=== PATIENT | female | born 1945 | race Caucasian/White ===

== ENCOUNTER 2020-01-11 14:06 | Outpatient (CLI) | payer MEDICARE, SELFPAY ==
--- NOTE | ~2020-01-11 | MM_ITS ---
EXAMINATION: MM screening miladys RT w radha HISTORY: Screening right mammogram, history of left mastectomy TECHNIQUE: Craniocaudal and mediolateral oblique 3-D tomosynthesis images were obtained and synthetic 2-D images were generated. CAD analysis was submitted and interpreted. COMPARISON: No prior mammogram is available for comparison at this institution. BREAST PARENCHYMAL COMPOSITION: There are scattered areas of fibroglandular density. FINDINGS: There is no evidence of suspicious mass, calcification, or architectural distortion to sugg est malignancy in either breast. IMPRESSION: 1. No mammographic evidence of malignancy. 2. Recommend routine screening mammography in one year. BI-RADS Category 1: Negative Reviewed, dictated and finalized at location A.
== END 2020-01-11 14:07 | disposition home or self-care (01) ==
LOC: ANHIMG 14:17
PROVIDERS: PCP Internal Medicine; Visit Provider Internal Medicine
DX: Z12.31 Encounter for screening mammogram for malignant neoplasm of breast (principal)
CPT/HCPCS: 77063; 77067

== ENCOUNTER → 2021-05-27 16:09 | Outpatient (CLI) | payer MEDICARE, SELFPAY ==
--- NOTE | ~2021-05-27 | MM_ITS ---
Corrected Report See bolded Text Order # associated 05/28/2021 [facility] EXAMINATION: MM screening miladys RT w radha HISTORY: Screening TECHNIQUE: Craniocaudal and mediolateral oblique 3-D tomosynthesis images were obtained and synthetic 2-D images were generated. CAD analysis was submitted and interpreted. COMPARISON: 01/11/2020 BREAST PARENCHYMAL COMPOSITION: There are scattered areas of fibroglandular density. FINDINGS: There is no evidence of suspicious mass, calcification, or architectural distortion to suggest malignancy in the right breast. There has been no suspicious interval change. IMPRESSION: 1. No mammographic evidence of malignancy. 2. Recommend routine screening mammography in one year. BI-RADS Category 1: Negative Reviewed, dictated and finalized at location A. 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
== END ==
PROVIDERS: PCP Internal Medicine; Visit Provider Internal Medicine
DX: Z12.31 Encounter for screening mammogram for malignant neoplasm of breast (principal)
CPT/HCPCS: 77063; 77067

== ENCOUNTER 2022-01-16 13:30 | Outpatient (RCR) | payer MEDICARE, SELFPAY ==
[2021-10-22 11:28] VITALS: PULSE 81
== END 2022-01-16 18:44 | disposition home or self-care (01) ==
LOC: ANHCPREHAB 13:30
PROVIDERS: PCP Internal Medicine
DX: I50.89 Other heart failure (principal)
CPT/HCPCS: 93798

== ENCOUNTER → 2022-05-29 13:20 | Outpatient (CLI) | payer MEDICARE, SELFPAY ==
--- NOTE | ~2022-05-29 | MM_ITS ---
EXAMINATION: MM screening miladys RT w radha HISTORY: Screening mammogram; status post left mastectomy for breast cancer, 1998 TECHNIQUE: Craniocaudal and mediolateral oblique 3-D tomosynthesis images were obtained and synthetic 2-D images were generated. CAD analysis was submitted and interpreted. COMPARISON: No prior mammogram is available for comparison at this institution. BREAST PARENCHYMAL COMPOSITION: May 27, 2021, January 11, 2020 right screening mammogram exami nations FINDINGS: There is no evidence of suspicious mass, calcification, or architectural distortion to sugg est malignancy in either breast. There has been no suspicious interval change. IMPRESSION: 1. Status post left mastectomy for breast cancer. No mammographic evidence of right breast malignancy . 2. Recommend routine screening mammography in one year. BI-RADS Category 1: Negative Reviewed, dictated and finalized at location A. 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 Status post left mastectomy for breast cancer. No mammographic evidence of r ight breast malignancy. 2. Recommend routine screening mammography in one year. BI-RADS Category 1: Negative
== END ==
PROVIDERS: PCP Internal Medicine; Visit Provider Internal Medicine
DX: Z12.31 Encounter for screening mammogram for malignant neoplasm of breast (principal)
CPT/HCPCS: 77063; 77067

== ENCOUNTER 2023-05-26 08:47 | Outpatient (CLI) | payer MEDICARE, SELFPAY | END 2023-05-26 08:48 | disposition home or self-care (01) | LOC: ANHBWCAUD 08:48 | PROVIDERS: PCP Internal Medicine; Visit Provider Internal Medicine | DX: H90.3 Sensorineural hearing loss, bilateral (principal) | CPT/HCPCS: 92557; 92567 ==

== ENCOUNTER 2023-11-04 14:51 | Outpatient (CLI) | payer MEDICARE, SELFPAY ==
--- NOTE | ~2023-11-04 | MM_ITS ---
EXAMINATION: MM screening miladys RT w radha HISTORY: Screening TECHNIQUE: Craniocaudal and mediolateral oblique 3-D tomosynthesis images were obtained and synthetic 2-D images were generated. CAD analysis was submitted and interpreted. COMPARISON: Comparison to multiple prior studies sequentially, with oldest reviewed study dated 01/10. BREAST PARENCHYMAL COMPOSITION: Not dense: There are scattered areas of fibroglandular density. FINDINGS: There is no evidence of suspicious mass, calcification, or architectural distortion to sugg est malignancy in the right breast. There has been no suspicious interval change. IMPRESSION: 1. No mammographic evidence of malignancy. 2. Recommend routine screening mammography in one year. BI-RADS Category 1: Negative Reviewed, dictated and finalized at location B.
== END 2023-11-04 14:52 ==
LOC: MICIMG 14:53
PROVIDERS: PCP Internal Medicine; Visit Provider Internal Medicine
DX: Z12.31 Encounter for screening mammogram for malignant neoplasm of breast (principal)
CPT/HCPCS: 77063; 77067

== ENCOUNTER 2024-08-30 01:11 | Day surgery (SDC) | payer MEDICARE, SELFPAY ==
[2024-03-25 13:52] VITALS: BMI 28.7
[2024-08-22 12:14] VITALS: BMI 28.7
--- OUTSIDE RECORDS SUMMARY | 2024-08-30 01:13 | XMS_ITS | Clinical Summary ---
Author Organization [facility] Address [address] [place] [address] Phone Care Team Providers Care School Services Officer Name Role Phone Provider, Unknown Primary Care Provider Unavaila ble Allergies No known active allergies Medications linaclotide (LINZESS) 290 MCG Capsule Take 290 mcg by mouth daily. Active RaNITidine HCl 150 MG Capsule Take 150 mg by mouth 2 times daily. Active sucralfate (CARAFATE) 1 GM Tablet Take 1 g by mouth 3 times daily. Active alendronate (FOSAMAX) 70 MG TabletIndication s:Osteoporosis Take 70 mg by mouth every 7 days. Active pravastatin (PRAVACHOL) 40 MG TabletIndication s:Hyperlipidemia Take 40 mg by mouth daily. Active Pregabalin (LYRICA) 300 MG Capsule Take 300 mg by mouth 2 times daily. Active lamoTRIgine (LAMICTAL) 100 MG TabletIndication s:Neurogenic Pain (Inactive) Take 100 mg by mouth 2 times daily. Active gabapentin (NEURONTIN) 100 MG CapsuleIndicatio ns:Neurogenic Pain (Inactive) Take 100 mg by mouth 3 times daily. Active gabapentin (NEURONTIN) 300 MG CapsuleIndicatio ns:Neurogenic Pain (Inactive) Take 300 mg by mouth 3 times daily. Active Active Problems No known active problems Social History Tobacco Use Types Packs/Day Years Used Date Smoking Tobacco: Never Assessed Sex and Gender Information Value Date Recorded Sex Assigned at Not on file Legal Sex Male 3:08 AM [employer] DEV[employer]OPMENT Gender Identity Not on file Sexual Orientation Not on file Last Filed Vital Signs Vital Sign Reading Time Taken Comments Blood Pressure 125/74 05/03/2017 12:20 AM [employer]ELOPMENT Pulse 88 05/03/2017 12:20 AM [employer]OP[employer] Temperature 36.6 C (97.9 F) 05/02/2017 6:07 PM [employer] Respiratory Rate 18 05/03/2017 12:20 AM [employer] BUSINESS DEVELOPMENT Oxygen Saturation 100% 05/03/2017 12:20 AM [employer] DEVELOPMENT Inhaled Oxygen Concentration - - Weight 77.1 kg (170 lb) 05/02/2017 6:07 PM [employer]ELOP[employer] Height 157.5 cm (5' 2 ) 05/02/2017 6:07 PM [employer]ELOPMENT Body Mass Index 31.09 05/02/2017 6:07 PM [employer]ELOPMENT Plan of Treatment Health Maintenance Due Date Last Done Comments Hepatitis C Virus (HCV) Screening 1945 TdaP Immunization 1945 Pneumococcal Immunization (5 0+ years) (1 of 1 - PCV) 1997 Zoster Immunization (1 of 2) 1997 Respiratory Syncytial Virus (RSV) Immunization (Adult) (1 - 1-dose 75+ series) 2022 Influenza Immunization (#1) 2023 SARS-COV-2 Immunization ( - season) 2023 Hepatitis B Immunization Aged Out No longer eligible based on patient's age to complete this topic Meningococcal Immunization (ACWY) Aged Out No longer eligible based on patient's age to complete this topic Rotavirus Immunization Aged Out No lo nger eligible based on patient's age to complete this topic Care Teams School Services Officer Relationship Specialty Start Date End Date Provider, Unknown UNKNOWN PCP - General 05/02/17
--- OUTSIDE RECORDS SUMMARY | 2024-08-30 01:14 | XMS_ITS | Data Portability ---
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 Name Role Phone DARON BUNCH Primary Care Provider [phone] DARON BUNCH Referring Provider Assessment Encounter Date Assessment Date Assessment LastModified by Organization Details LastModified Time 08/19/2022 08/19/2022 Will continue with current therapy clinically appears to be stable will follow-up with me in 3-4 months [email or web address] Not available 09/21/2022 17:05:13 09/02/2022 09/02/2022 Most likely contusion continue to monitor x-ray negative for fracture [email or web address] Not available 09/02/2022 22:20:30 10/31/2022 10/31/2022 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 At her request under sterile conditions I injected the patient's left wrist 1st dorsal compartment with 2 cc of 0.5% ropivacaine and 10 mg of Kenalog. The patient tolerated the procedure well. I will see her back as needed. We have talked about surgical options with her multiple times but she has been dealing with other more significant medical issues and wants to get by with conservative measures for her wrist. She will call for any further problems difficulties or questions. 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 We talked about treatment options today she wanted proceed with cortisone therefore under sterile conditions I injected the patient's left wrist into the 1st dorsal compartment with 2 cc of 0.5% Marcaine and 10 mg of Kenalog. Patient tolerated the procedure well. Her last injection and treatment were almost 1 year ago she did very well last time hopefully she will again I will see her back as needed if her symptoms continue to recur we could consider surgical intervention. She voiced understanding agrees above plan she will call for any further problems difficulties or questions. The patient does take meloxicam 15 mg daily as well this could help also we talked about icing and stretching also. Not available 10/12/2023 12:30:16 Plan of Treatment Reminders Order Date Submit Date Provider Last Modified By Organization Details Last Modified Time Details Appointments None recorded. Lab CBC w/ auto diff 2022 023 [email or web address] Not available 21:25:42 lipid panel, serum 2022 023 [email or web address] Not available 21:25:42 CMP, serum or plasma 2022 023 [email or web address] Not available 21:25:42 Referral None recorded. Procedures injection/a spiration joint/bursa (PROC) - in office procedure, administere d by provider 2023 024 [email or web address] In-Office Order, Internal Use Only DO Not Attach Compendium DO Not Attach Compendium, Do Not Delete/merge, [id number] 11:49:48 injection/a spiration joint/bursa (PROC) - in office procedure, administere d by provider 2022 023 [email or web address] In-Office Order, Internal Use Only DO Not Attach Compendium DO Not Attach Compendium, Do Not Delete/merge, [id number] 14:29:02 Surgeries None recorded. Imaging XR, wrist 2023 024 [email or web address] [facility] [place], [facility], [place], [address], 4 12:31:49 Medication Orders Marcaine 0.5 % (5 mg/mL) injection solution 2023 024 [email or web address] [facility] #[id number], [address], [place], [place], [id number], 4 12:24:40 Kenalog 10 mg/mL suspension for injection 2023 024 [email or web address] [facility] #[id number], [address], [place], [place], [id number], 4 12:24:40 Kenalog 10 mg/mL suspension for injection 2022 023 [email or web address] [facility] #[id number], [address], [place], [place], [id number], 3 10:08:50 ropivacaine (PF) 5 mg/mL (0.5 %) injection solution 2022 023 [email or web address] 45 [facility] #[id number], [address], [place], [place], [id number], 3 10:08:43 Patient TargetsNo targets recorded. Patient InstructionsNo instructions recorded. Reason for Referral None Reported. Results Created Date Observation Date Name Description Value Unit Range Abnormal Flag Note LastModifiedBy Organization Detail LastModifiedTime 02/25/20 23 02/24/2023 CBC/C OMPLE TE BLD COUNT W/DIF F white blood cells 6.7 x10'3 /uL 4.2-10 .8 Not Available [facility] (Lab) [address] [place], [address], 02/24/2023 13:09:56 02/25/20 23 02/24/2023 CBC/C OMPLE TE BLD COUNT W/DIF F red blood cells 4.91 x10'6 /uL 3.80-5 .20 Not Available [facility] (Lab) [address] [place], [address], 02/24/2023 13:09:56 02/25/2002/24/2023 CBC/C OMPLE TE BLD COUNT W/DIF F hemoglobin 15.1 g/dL 12.0-1 5.6 Not Available [facility] (Lab) [address] [place], [address], 02/24/2023 13:09:56 02/25/20 23 02/24/2023 CBC/C OMPLE TE BLD COUNT W/DIF F hematocrit 45.9 % 35.7-4 5.7 high Not Available [facility] (Lab) [address] [place], [address], 02/24/2023 13:09:56 02/25/20 23 02/24/2023 CBC/C OMPLE TE BLD COUNT W/DIF F mean red cell volume 93.5 fL 82.0-9 9.0 Not Available [facility] (Lab) [address] [place], [address], 02/24/2023 13:09:56 02/25/2002/24/2023 CBC/C OMPLE TE BLD COUNT W/DIF F mean red cell hemoglobin 30.8 pg 27.0-3 3.0 Not Available [facility] (Lab) [address] [place], [address], 02/24/2023 13:09:56 02/25/20 23 02/24/2023 CBC/C OMPLE TE BLD COUNT W/DIF F mean RBC HGB concentratio n 32.9 g/dL 31.0-3 6.0 Not Available [facility] (Lab) [address] [place], [address], 02/24/2023 13:09:56 02/25/20 23 02/24/2023 CBC/C OMPLE TE BLD COUNT W/DIF F red cell distribution width 13.3 % 11.8-1 5.5 Not Available [facility] (Lab) [address] [facility] [place], [address], 02/24/2023 13:09:56 02/25/20 23 02/24/2023 CBC/C OMPLE TE BLD COUNT W/DIF F platelets 155 x10'3 /uL 150-40 0 Not Available [facility] (Lab) [address] [place], [address], 02/24/2023 13:09:56 02/25/2002/24/2023 CBC/C OMPLE TE BLD COUNT W/DIF F mean platelet volume 11.0 fL 9.0-12 .4 Not Available [facility] (Lab) [address] [place], [address], 02/24/2023 13:09:56 02/25/2002/24/2023 CBC/C OMPLE TE BLD COUNT W/DIF F neutrophils 64.2 % 39.0-7 2.0 Not Available [facility] (Lab) [address] [place], [address], 02/24/2023 13:09:56 02/25/2002/24/2023 CBC/C OMPLE TE BLD COUNT W/DIF F lymphocytes 24.3 % 16.0-4 7.0 Not Available [facility] (Lab) [address] [place], [address], 02/24/2023 13:09:56 02/25/2002/24/2023 CBC/C OMPLE TE BLD COUNT W/DIF F monocytes 7.8 % 5.0-12 .0 Not Available [facility] (Lab) [address] [place], [address], 02/24/2023 13:09:56 02/25/20 23 02/24/2023 CBC/C OMPLE TE BLD COUNT W/DIF F eosinophils 2.8 % 1.0-7. 0 Not Available [facility] (Lab) [address] [place], [address], 02/24/2023 13:09:56 02/25/2002/24/2023 CBC/C OMPLE TE BLD COUNT W/DIF F basophils 0.6 % 0.0-2. 0 Not Available [facility] (Lab) [address] [place], [address], 02/24/2023 13:09:56 02/25/2002/24/2023 CBC/C OMPLE TE BLD COUNT W/DIF F immature granulocytes 0.3 % 0.00-0 .50 Not Available [facility] (Lab) [address] [place], [address], 02/24/2023 13:09:56 02/25/2002/24/2023 CBC/C OMPLE TE BLD COUNT W/DIF F neutrophils, absolute count 4.29 x10'3 /uL 1.5-8. 0 Not Available [facility] (Lab) [address] [place], [address], 02/24/2023 13:09:56 02/25/20 23 02/24/2023 CBC/C OMPLE TE BLD COUNT W/DIF F lymphocytes, absolute count 1.62 x10'3 /uL 1.07-3 .43 Not Available [facility] (Lab) [address] [place], [address], 02/24/2023 13:09:56 02/25/2002/24/2023 CBC/C OMPLE TE BLD COUNT W/DIF F monocytes, absolute count 0.52 x10'3 /uL 0.29-0 .99 Not Available [facility] (Lab) [address] [place], [address], 02/24/2023 13:09:56 11/02/24/2023 CBC/C OMPLE TE BLD COUNT W/DIF F eosinophils, absolute count 0.19 x10'3 /uL 0.02-0 .53 Not Available [facility] (Lab) [address] [place], [address], 02/24/2023 13:09:56 02/25/20 23 02/24/2023 CBC/C OMPLE TE BLD COUNT W/DIF F basophils, absolute count 0.04 x10'3 /uL 0.01-0 .08 Not Available [facility] (Lab) [address] [place], [address], 02/24/2023 13:09:56 02/25/2002/24/2023 CBC/C OMPLE TE BLD COUNT W/DIF F immature granulocytes ,absolute 0.02 x10'3 /uL 0.00-0 .05 Not Available [facility] (Lab) [address] [place], [address], 02/24/2023 13:09:56 02/25/2002/24/2023 CBC/C OMPLE TE BLD COUNT W/DIF F nucleated red blood cells 0.0 % -0 Not Available [facility] (Lab) [address] [place], [address], 02/24/2023 13:09:56 02/25/2002/24/2023 CBC/C OMPLE TE BLD COUNT W/DIF F NRBC# 0.00 x10'3 /uL Not Available [facility] (Lab) [address] [place], [address], 02/24/2023 13:09:56 02/25/2002/24/2023 LIPID PANEL cholesterol 258 mg/dL 140-19 9 high NIH CASSANDRA NSUS RECOM MENDA TION FOR NEHA STERO L: ADULT CHILD LOW RISK: <200 <170 BORDE RLINE : <200- 239 ----- HIGH RISK: >240 >200 Not Available [facility] (Lab) [address] [place], [address], 02/24/2023 14:03:43 02/25/2002/24/2023 LIPID PANEL triglyceride s 142 mg/dL 0-150 NIH CASSANDRA NSUS REPOR T RECOM MENDA TION FOR TRIGL YCERI DANTE: ADULT CHILD LOW RISK: <150 ----- BODER LINE: 150-1 99 ----- HIGH RISK: >200 ----- Not Available [facility] (Lab) [address] [place], [address], 02/24/2023 14:03:43 02/25/2002/24/2023 LIPID PANEL HDL cholesterol 52 mg/dL 40- Not Available [facility] (Lab) [address] [place], [address], 02/24/2023 14:03:43 02/25/2002/24/2023 LIPID PANEL LDL cholesterol, calculated 178 mg/dL 0-130 high NIH CASSANDRA NSUS REPOR T RECOM MENDA TIONS FOR LDL: ADULT CHILD LOW RISK <130 <110 (OPTI MAL LDL) <100 ----- BORDE RLINE : 130-1 59 ----- HIGH RISK: >160 >130 A TRIGL YCERI DE RESUL T >400 INVAL IDATE S THE CALCU LATIO N FOR LDL FRACT IONAT ION - THE LDL RESUL T WILL NOT BE REPOR ETHAN. Not Available [facility] (Lab) [address] [place], [address], 02/24/2023 14:03:43 02/25/20 23 02/24/2023 COMPR EHENS GINNY METAB OLIC PANEL sodium 141 mmol/ L 137-14 5 Not Available [facility] (Lab) [address] [place], [address], 02/24/2023 14:03:50 02/25/20 23 02/24/2023 COMPR EHENS GINNY METAB OLIC PANEL potassium 4.2 mmol/ L 3.5-5. 1 Not Available [facility] (Lab) [address] [place], [address], 02/24/2023 14:03:50 02/25/20 23 02/24/2023 COMPR EHENS GINNY METAB OLIC PANEL chloride 102 mmol/ L 98-107 Not Available [facility] (Lab) [address] [facility] [place], [address], 02/24/2023 14:03:50 02/25/20 23 02/24/2023 COMPR EHENS GINNY METAB OLIC PANEL carbon dioxide 31 mmol/ L 22-30 high Not Available [facility] (Lab) [address] [place], [address], 02/24/2023 14:03:50 02/25/20 23 02/24/2023 COMPR EHENS GINNY METAB OLIC PANEL anion gap 12.2 mmol/ L 14-22 low Not Available [facility] (Lab) [address] [place], [address], 02/24/2023 14:03:50 02/25/20 23 02/24/2023 COMPR EHENS GINNY METAB OLIC PANEL glucose 95 mg/dL 70-99 Not Available [facility] (Lab) [address] [place], [address], 02/24/2023 14:03:50 02/25/20 23 02/24/2023 COMPR EHENS GINNY METAB OLIC PANEL BUN 30 mg/dL 8-19 high Not Available [facility] (Lab) [address] [place], [address], 02/24/2023 14:03:50 02/25/20 23 02/24/2023 COMPR EHENS GINNY METAB OLIC PANEL creatinine 0.76 mg/dL 0.66-1 .25 Not Available [facility] (Lab) [address] [place], [address], 02/24/2023 14:03:50 02/25/20 23 02/24/2023 COMPR EHENS GINNY METAB OLIC PANEL GFR >60 Refer ence Range : [place] ge GFR Healt hy Adult : >60 mL/mi n/1.7 3 m2 Chron ic Kidne y Disea se: 15-60 mL/mi n/1.7 3 m2 Kidne y Failu re: <15/m L/min /1.73 m2 www.[facility] ov The MDRD study equat ion has not been valid ated in child jessie <18 years of age; pregn ant women ; the elder ly >85 years of age; or in some racia l or ethni c subgr oups, such as Hispa nics. Outsi de the valid ated steve eters , estim ated GFR is less accur ate, requi ring clini eddie judgm ent on a case- by-ca se basis . Clini eddie inter preta tion for other races and ages must be made by the clini nancy. The MDRD study equat ion has not been valid ated for the evalu ation of serum creat inine relat ed to nutri chicho l statu s or medic ation usage . For perso ns <18 years of age, a pedia tric GFR calcu lator is avail able on the [facility] websi te: https ://byron reynoso.malena hannah.o karla/pr julissaess ional s/kdo qi/gf r_cal culat or Not Available [facility] (Lab) [address] [place], [address], 02/24/2023 14:03:50 02/25/20 23 02/24/2023 COMPR EHENS GINNY METAB OLIC PANEL alkaline phosphatase 67 U/L 38-126 Not Available [facility] (Lab) [address] [place], [address], 02/24/2023 14:03:50 02/25/20 23 02/24/2023 COMPR EHENS GINNY METAB OLIC PANEL alanine aminotransfe rase 20 U/L 0-35 Not Available [facility] (Lab) [address] [place], [address], 02/24/2023 14:03:50 02/25/20 23 02/24/2023 COMPR EHENS GINNY METAB OLIC PANEL aspartate aminotransfe rase 27 U/L 15-37 Not Available [facility] (Lab) [address] [place], [address], 02/24/2023 14:03:50 02/25/20 23 02/24/2023 COMPR EHENS GINNY METAB OLIC PANEL bilirubin, total 0.70 mg/dL 0.20-1 .30 Not Available [facility] (Lab) [address] [place], [address], 02/24/2023 14:03:50 02/25/20 23 02/24/2023 COMPR EHENS GINNY METAB OLIC PANEL calcium 10.7 mg/dL 8.4-10 .2 high Not Available [facility] (Lab) [address] [place], [address], 02/24/2023 14:03:50 02/25/20 23 02/24/2023 COMPR EHENS GINNY METAB OLIC PANEL total protein 6.7 g/dL 6.3-8. 2 Not Available [facility] (Lab) [address] [place], [address], 02/24/2023 14:03:50 02/25/20 23 02/24/2023 COMPR EHENS GINNY METAB OLIC PANEL albumin 4.0 g/dL 3.0-4. 4 Not Available [facility] (Lab) [address] [place], [address], 02/24/2023 14:03:50 02/25/20 23 02/24/2023 COMPR EHENS GINNY METAB OLIC PANEL globulin 2.7 g/dL 2.6-4. 2 Not Available [facility] (Lab) [address] [place], [address], 02/24/2023 14:03:50 02/25/20 23 02/24/2023 COMPR EHENS GINNY METAB OLIC PANEL A/G ratio 1.5 ratio 1.0-2. 0 Not Available [facility] (Lab) [address] [place], [address], 02/24/2023 14:03:50 03/12/2003/12/2023 RAPID STREP A DNA strep A DNA, SHANE NEGATI VE negati ve Not Available [facility] (Lab) [address] [place], [address], 03/12/2023 12:59:34 03/12/2003/12/2023 COVID -19, INFLU ALICE A+B PANEL sars-cov-2 RNA(covid19) ,RT-PCR POSITI VE abnormal This test has been autho rized by the FDA under an Emerg ency Use Autho rizat ion (EUA) for use by autho rized labor atori es. Negat ginny resul ts do not precl ude SARS- CoV-2 and shoul d not be used as the sole basis for treat ment or other patie nt manag ement decis ions. Test resul ts shoul d be corre lated with the clini eddie histo ry, epide miolo gical data, and other data avail able to the clini nancy evalu ating the patie nt. Nadia phelan w the Fact Sheet s for healt h care provi ders and patie nts at the [facility] asuncion: https ://ww w.fda .gov/ media /1363 12/do wnloa d https ://ww w.fda .gov/ media /1363 13/do wnloa d Metho dolog y: Real- Time RT-PC R Not Available [facility] (Lab) [address] [place], [address], 03/12/2023 13:44:06 03/12/20 23 03/12/2023 COVID -19, INFLU ALICE A+B PANEL influenza A RNA, RT-PCR NEGATI VE Not Available [facility] (Lab) [address] [place], [address], 03/12/2023 13:44:06 03/12/20 23 03/12/2023 COVID -19, INFLU ALICE A+B PANEL influenza B RNA, RT-PCR NEGATI VE abnormal Not Available [facility] (Lab) [address] [place], [address], 03/12/2023 13:44:06 09/02/19 23 XR, chest , 2 view [facility] [address] [place] [address] [phone] Claribel almonte Name: DELLA KILLIAN Access ion #: [id number] Sex: F : 1944 7 Locati on: RA2 Attend ing Physic jeison: RALPH BUNCH Orderi ng Physic jeison: RALPH BUNCH Exam Date: 023 11:01 AM Exam Name: XR CHEST 2V Admitt ing Diagno sis(es ): RADIOL OGY REPORT - FINAL EXAM: XR CHEST 2V HISTOR Y: rib pain 77-yea r-old female with right anteri or chest pain after injury 4 days ago. The patien t has a histor y of left sided breast cancer . COMPAR NERY: None availa ble. TECHNI QUE: 2 views of the chest were perfor med. FINDIN GS: There is scarri ng in the right middle lobe and lingul a. No pneumo thorax , pleura l effusi ons, pulmon jacqueline edema, or other infilt rates. The heart is enlarg ed. The aortic arch is calcif ic. The centra l pulmon jacqueline arteri es are likely ectati c. There are surgic al clips overly ing the left breast and upper abdome n. No fractu res are identi fied about the bony thorax . 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 IMPRES MARCELINO: 1. Bilate ral lung base scarri ng withou t eviden ce of acute intrat horaci c proces s. 2. Cardio megaly and athero sclero tic vascul ar diseas e. 3. Pulmon jacqueline arteri al hypert ension . Create d and electr onical ly signed by: Steve baldwin MD Signed Date: 9:00 PM (CT) Dictat ed by: Steve baldwin MD DD: 9:00 PM (CT) DT: 9:00 PM (CT) Page [address] (Imaging) [address] [place], [address], 02/21/2023 16:29:41 10/12/19 24 XR, wrist No observ ation record ed. [email or web address] [place] [address] [facility] [address], [place], [address], 10/12/2023 12:31:47 Result Notes None recorded. Problems Name Problem SNOMED Code Status Onset Date Resolution Date Notes Provider Name and Address Organization Details Recorded Time Sciatica 13719584 Active 2022 Not Available [facility] 3 07:35:11 Rib pain 308343662 Active 2022 Not Available [facility] 3 07:35:11 Disorder of shoulder 141146738 Active Not Available [facility] 3 07:35:11 Constipat ion 63824679 Active Not Available [facility] 3 07:35:11 Tenosynov itis of left radial styloid 76808709559 170060 Active 2021 Not Available [facility] 3 07:35:11 Tongue symptoms 862225661 Active 2021 Not Available [facility] 3 07:35:11 Localized , primary osteoarth ritis 397049088 Active Not Available [facility] 3 07:35:11 Localized , secondary osteoarth ritis of the shoulder region 401740961 Active Not Available [facility] 3 07:35:11 Osteoarth ritis of knee 647225511 Active Not Available [facility] 3 07:35:11 Gastroeso phageal reflux disease without esophagit is 048780822 Active 2016 Not Available [facility] 3 07:35:11 Pure hyperchol esterolem ia 716327463 Active Not Available [facility] 3 07:35:11 Synovial plica 785566388 Active Not Available [facility] 3 07:35:11 Current tear of medial cartilage AND/OR meniscus of knee Active Not Available [facility] 3 07:35:11 Knee pain Active Not Available [facility] 3 07:35:11 Trigemina l neuralgia 62249655 Active Not Available [facility] 3 07:35:11 Pain of left wrist 34658865521 9102 Active 2021 Not Available [facility] 3 07:35:11 Vitamin D deficienc y 71668230 Active Not Available [facility] 3 07:35:12 Chondroma lacia of patella 48970303 Active Not Available [facility] 3 07:35:12 Osteoarth rosis of the carpometa carpal joint of the thumb 10929236 Active 2021 Not Available [facility] 3 07:35:12 Osteoarth ritis 775715671 Active Not Available [facility] 3 07:35:12 Congestiv e heart failure 81046646 Active 2021 heart catheteri [facility] normal coronary arteries EF 10-15% 3+ to 4+ MR May 2021 Not Available [facility] 3 07:35:12 Tenosynov itis of wrist 437578308 Active 2020 Not Available [facility] 3 07:35:12 Disorder of joint of ankle and/or foot 189242892 Active Not Available [facility] 3 07:35:12 Derangeme nt of posterior horn of medial meniscus 8537764 Active Not Available [facility] 3 07:35:12 Essential hypertens ion 67154114 Active 2020 Not Available [facility] 3 07:35:12 Diarrhea 06046706 Active 2021 Not Available [facility] 3 07:35:12 Derangeme nt of knee 19233080 Active Not Available [facility] 3 07:35:12 Osteoporo sis 14208289 Active Not Available [facility] 3 07:35:12 Neck pain 54936529 Active Not Available [facility] 3 07:35:12 Chronic rhinitis 86299580 Active Not Available [facility] 3 07:35:12 Pain in limb 00305614 Active Not Available [facility] 3 07:35:12 Upper respirato ry infection 95292729 Active 2022 Not Available [facility] 3 07:35:12 COVID-19 714316058 Active 2022 Not Available [facility] 3 07:35:12 Hyperlipi demia 00350307 Active 2022 Phoebe Kendall RN null, [facility] [employer] [facility] 3 12:47:48 Bilateral hearing loss 68980607 Active 2023 JOSEFA Moore null, [employer] [facility] [employer] [facility] 4 16:10:40 Problem Notes None recorded. Procedures Surgical History Date Name Laterality Status Provider Name and Address Organization Details Recorded Time 06/12/19 18 Thyroid Surgery completed Not Available [facility] 06/11/2022 02:55:10 04/13/19 18 cholecystectomy completed Not Available [facility] 06/11/2022 02:55:10 07/20/19 15 Knee arthroscopy/surger y completed Not Available [facility] 06/11/2022 02:55:10 01/10/20 14 Date of Last Colonoscopy completed Not Available [facility] 06/11/2022 02:55:05 03/05/20 07 Most Recent Bone Density completed Not Available [facility] 06/11/2022 02:55:06 04/13/19 00 Hernia Repair completed Not Available [facility] 06/11/2022 02:55:10 04/13/18 99 other completed Not Available [facility] 06/11/2022 02:55:10 other completed Not Available [facility] 06/11/2022 02:55:10 other completed Not Available [facility] 06/11/2022 02:55:10 Imaging Results Imaging Date Name Status LastModified by Organiz ation Details LastModified Time 09/01/2022 XR, chest, 2 view completed [email or web address] [facility] (Imaging) [address] [place], [place], [address], 02/21/2023 16:29:41 10/12/2023 XR, wrist completed [email or web address] [id number] [address] [facility] [address], [place], [address], 10/12/2023 12:31:47 Procedure Notes None recorded. Medical Equipment None Reported. Allergies Allergen ID Allergen Name Allergen Category Reaction Reaction Severity Criticality Documentation Date Start Date Code Code System Note Provider Name and Address Organization Details Recorded Time 5934 morphine medicatio n hallucina tions vomiting Not available Not available Not available 06/11/2022 7052 RxNorm Not Available [facility] 3 03:28:45 5935 codeine medicatio n hallucina tions vomiting Not available Not available Not available 06/11/2022 2670 RxNorm Not Available [facility] 3 03:28:46 Medications Name Sig Start Date Stop Date Status Note LastModified by Organization Details LastModified Time cyclobenz aprine 10 mg tablet 08/15 completed Not Available Not Available Not Available amoxicill in 500 mg capsule Take 1 capsule 3 times a day by oral route for 7 days. 10/11 completed Not Available Not Available Not Available furosemid e 40 mg tablet Take 1 tablet every day by oral route for 60 days. 06/13 completed Not Available Not Available Not Available methocarb aniyah 500 mg tablet TAKE 2 TABLETS BY MOUTH EVERY 8 HOURS NEEDED 11/21 completed Not Available Not Available Not Available promethaz ine-DM 6.25 mg-15 mg/5 mL oral syrup 04/17 completed Not Available Not Available Not Available prednison e 10 mg tablet 08/19 completed Not Available Not Available Not Available atorvasta tin 20 mg tablet TAKE 1 TABLET BY MOUTH EVERY DAY active Not Available Not Available No t Available clindamyc in HCl 300 mg capsule Take 1 capsule 3 times a day by oral route for 7 days. active Not Available Not Available No t Available azithromy neo 250 mg tablet TK 2 TS PO ON DAY 1, THEN TK 1 T PO D FOR 4 DAYS 05/29 completed Not Available Not Available Not Available pravastat in 40 mg tablet TAKE 1 TABLET BY MOUTH EVERY DAY active Not Available Not Available No t Available Lidocaine Viscous 2 % mucosal solution SWISH AND SPIT 15 ML BY MOUTH EVERY 4 HOURS NEEDED FOR MOUTH PAIN 03/13 completed Not Available Not Available Not Available tizanidin e 4 mg tablet active Not Available Not Available Not Available benzonata te 200 mg capsule TAKE 1 CAPSULE BY MOUTH THREE TIMES DAILY NEEDED 10/11 completed Not Available Not Available Not Available valacyclo vir 1 gram tablet TK 1 T PO TID active Not Available Not Available No t Available cephalexi n 250 mg capsule 06/18 completed Not Available Not Available Not Available hydrocodo ne 5 mg-acetam inophen 325 mg tablet TAKE 1 TABLET EVERY 6 HOURS NEEDED FOR PAIN 03/13 completed Not Available Not Available Not Available meloxicam 15 mg tablet TAKE 1 TABLET BY MOUTH EVERY DAY active Not Available Not Available No t Available sucralfat e 1 gram tablet TK 1 T PO AC AND HS 06/13 completed Not Available Not Available Not Available ondansetr on HCl 4 mg tablet 02/24 completed Not Available Not Available Not Available prednison e 20 mg tablet Take 2 tablets every day by oral route for 5 days. 02/05 completed Not Available Not Available Not Available [id number]|2024-08-30 01:14:00|2024-08-30 01:13:00|XMS_ITS|BKG DAEMON|External Medical Summaries|[id number]|" Encounter Summary Created on: August 30, 2024 Della Killian : 1945 Sex: Female Author Organization [facility] Address [address] [place] [address] Phone Care Team Providers Care Warehouse Shipping Receiving Clerk Name Role Phone Daron Bunch MD Primary Care Provider [phone] Favian Richards MD Unavailable [phone] Jenn Aiken RN Unavailable Unavaila ble Andra Navarrete MD Unavailable [phone] Encounter Details Date Type Department Care Team (Late st Contact Info) Description 01/27/2018 Documentation [facility] [address] [facility] 5th [place] [address] [place] [id number] Yaakov Nation MD PhD 1 [facility] [address] [place] [address] Social History Tobacco Use Types Packs/Day Years Used Date Smoking Tobacco: Never Smokeless Tobacco: Never Alcohol Use Standard Drinks/Week Comments Yes 0 (1 standard drink = 0.6 oz pur e alcohol) occasional Comments No Sex and Gender Information Value Date Recorded Sex Assigned at Not on file Legal Sex Female 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 02/05/2021 03/29/2021 06/05/2021 3:[address] COVID: Suspected 05/27/2021 05/27/2021 05/27/2021 12:37 PM FOOD SAFETY OFFICER documented as of this encounter Care Teams Warehouse Shipping Receiving Clerk Relationship Specialty Start Date End Date Daron Bunch MD PCP - General 04/20/17 Favian Richards MD Referring Physician Neurosurgery 05/10/18 Jenn Aiken, engineer gas pumping station Failure Coordinator 09/02/22 09/02/22 Andra Navarrete MD [address] [address] Consulting Physician Cardiology 03/29/24 documented as of this encounter "
--- OUTSIDE RECORDS SUMMARY | 2024-08-30 01:14 | XMS_ITS | Data Portability ---
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 [email or web address] Not available 07/11/2023 20:50:51 01/11/2024 01/11/2024 most recent bloo d work reviewed and it is stable cardiopulmonarywise stable flu shot today see me back in 4 months she will get COVID shot later obtain old records [email or web address] Not available 01/11/2024 22:27:50 05/19/2024 05/19/2024 we will continue current therapy. Clinically euvolemic blood work has been ordered pneumococcal vaccination and follow up in 4 months [email or web address] Not available 05/19/2024 23:19:55 Plan of Treatment Reminders Order Date Submit Date Provider Last Modified By Organization Details Last Modified Time Details Appointments ANY 15 2024 09:00A M Daron Bunch MD Not available Not available Not available Lab CBC w/ auto diff 2024 025 [email or web address], [address] [place], [address], 05/31/2024 12:39:42 lipid panel, serum 2024 025 [facility], [address], [place], [address], 05/25/2024 16:56:31 CMP, serum or plasma 2024 025 [email or web address], [address], [place], [address], 05/31/2024 12:39:26 Referral None recorded . Procedures None recorded . Surgeries None recorded . Imaging None recorded . Medication Orders Valtrex 500 mg tablet 2023 024 [id number], [address], [place], [place], [id number], 07/03/2023 13:56:13 Patient TargetsNo targets recorded. Patient Instructions Encounter Date Encounter Id Patient Instructions Last Modified By Organization Details Last Modified Time 05/19/2024 [id number] A healthy lifestyle: care instructions Not available 05/19/2024 17:44:41 Reason for Referral None Reported. Results Created Date Observation Date Name Description Value Unit Range Abnormal Flag Note LastModifiedBy Organization Detail LastModifiedTime 11/04/19 24 11/04/2023 MAMMO , scree meredith, digit al, bilat eral No observ ation record ed. hiroginette [facility] [address], [place], [address], 11/06/2023 11:22:31 Result Notes None recorded. Problems Name Problem SNOMED Code Status Onset Date Resolution Date Notes Provider Name and Address Organization Details Recorded Time Herpes zoster 1886929 Active 2023 RICHARD Moore, [place] - [facility] 4 11:51:56 Vitamin D deficiency 86992804 Active 2023 Taz Damon MA null, [place] [facility] 4 11:15:04 Osteoporosi s 38981987 Active 2023 Taz Damon MA null, [place] - [facility] 4 11:15:05 Hyperlipide magdy 82308262 Active 2023 Daron Bunch MD Attn: Peyman todd,[address] [facility], [place], [address], [place] - [facility] 4 22:24:24 Gastro-esop hageal reflux disease with esophagitis 173934469 Active 2023 Daron Bunch MD Attn: Peyman todd,[address] [facility], [place], [address], [place] [facility] 4 22:28:04 Long-term drug therapy Active 2024 RICHARD Moore, [place] - [facility] 5 10:49:07 Nonischemic congestive cardiomyopa thy 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 Procedures Surgical History Date Name Laterality Status Provider Name and Address Organization Details Recorded Time Eye Surgery completed Seth Lu MA [facility] 07/03/2023 11:14:26 parathyroidectomy completed Seth Lu MA [facility] 07/03/2023 11:14:47 Total hysterectomy completed Awilda Lu MA [facility] 07/03/2023 11:14:55 deep brain stimulation completed Seth Lu MA [facility] 07/03/2023 11:18:22 Imaging Results Imaging Date Name Status LastModified by Organiz ation Details LastModified Time 11/04/2023 MAMMO, screening, digital, bilateral completed [facility] [address] [facility], [place], [address], 11/06/2023 11:22:31 Procedure Notes None recorded. Medical Equipment None Reported. Allergies Allergen ID Allergen Name Allergen Category Reaction Reaction Severity Criticality Documentation Date Start Date Code Code System Note Provider Name and Address Organization Details Recorded Time 850424 morphine medicatio n Not available Not available Not available 07/03/2023 7052 RxNorm RICHARD Crowder, [place] - [facility] 4 11:08:59 431133 codeine medicatio n Not available Not available Not available 07/03/2023 2670 RxNorm Seth Lu MA naheed, [place] - [facility] 4 11:09:13 Medications Name Sig Start Date Stop Date Status Note LastModified by Organization Details LastModified Time status covid-19/fl u a-b antigen tst TEST DIRECTED TODAY active Not Available Not Available No t Available amoxicillin 500 mg capsule TAKE 1 CAPSULE BY MOUTH EVERY 6 HOURS UNTIL ALL TAKEN 07/02 completed Not Available Not Available Not Available prednisone 10 mg tablet 07/02 completed Not Available Not Available Not Available doxycycline hyclate 100 mg capsule TAKE 1 CAPSULE BY MOUTH TWICE DAILY FOR 7 DAYS active Not Available Not Available No t Available atorvastati n 20 mg tablet TAKE 1 TABLET BY MOUTH DAILY active Not Available Not Available No t Available tizanidine 4 mg tablet TAKE 1 TABLET BY MOUTH EVERY DAY AT BEDTIME active Not Available Not Available No t Available benzonatate 200 mg capsule TAKE 1 CAPSULE BY MOUTH THREE TIMES DAILY NEEDED 01/10 completed Not Available Not Available Not Available valacyclovi r 1 gram tablet TAKE 2 TABLETS BY MOUTH TWICE DAILY FOR 1 DAY AT ONSET OF SYMPTOMS DIRECTED active Not Available Not Available No t Available meloxicam 15 mg tablet TAKE 1 TABLET BY MOUTH DAILY 2024 active Not Available Not Available Not Avai lable valacyclovi r 500 mg tablet TAKE 1 TABLET BY MOUTH TWICE DAILY FOR 7 DAYS active Not Available Not Available No t Available spironolact one 25 mg tablet TAKE 1/2 TABLET BY MOUTH EVERY EVENING active Not Available Not Available No t Available ketorolac 0.5 % eye drops 1 DROP 3 TIMES DAILY INTO SURGICAL EYE X 1 MONTH. BEGIN AFTER BEING SEEN IN OFFICE POST OP 07/02 completed Not Available Not Available Not Available terbinafine HCl 250 mg tablet TAKE 1 TABLET BY MOUTH EVERY DAY active Not Available Not Available No t Available famotidine 20 mg tablet TAKE 1 TABLET BY MOUTH TWICE DAILY active Not Available Not Available No t Available prednisolon e acetate 1 % eye drops,suspe nsion active Not Available Not Available Not Available famciclovir 500 mg tablet TAKE ONE TABLET BY MOUTH TWICE DAILY 07/02 completed Not Available Not Available Not Available polymyxin B sulfate 10,000 unit-trimet hoprim 1 mg/mL eye drops INSTILL ONE DROP IN OPERATED EYE FOUR TIMES DAILY X 7 DAYS . BEING AFTER BEING SEEN AT OFFICE FOR FIRST POST OP VISIT 07/02 completed Not Available Not Available Not Available betamethaso ne, augmented 0.05 % topical ointment APPLY TO BOTH FEET TWICE DAILY active Not Available Not Available No t Available gabapentin 300 mg capsule TAKE 1 CAPSULE BY MOUTH THREE TIMES DAILY active Not Available Not Available No t Available mupirocin 2 % topical ointment APPLY TO NARES TWICE DAILY STARTING 5 DAYS PROOR TO SURGERY ENDING THE DAY PRIOR 07/02 completed Not Available Not Available Not Available furosemide 20 mg tablet active Not Available Not Available Not Available gabapentin 100 mg capsule active Not Available Not Available Not Available metoprolol succinate ER 25 mg tablet,exte nded release 24 hr active Not Available Not Available Not Available methylpredn isolone 4 mg tablets in a dose pack FOLLOW PACKAGE DIRECTION S active Not Available Not Available No t Available albuterol sulfate HFA 90 mcg/actuati on aerosol inhaler INHALE 2 PUFFS BY MOUTH EVERY 4 HOURS active Not Available Not Available No t Available lisinopril 2.5 mg tablet active Not Available Not Available Not Available lamotrigine 100 mg tablet active Not Available Not Available Not Available cyclosporin e 0.05 % eye drops in a dropperette INSTILL 1 DROP IN BOTH EYES TWICE DAILY active Not Available Not Available No t Available alendronate 70 mg/75 mL oral solution active Not Available Not Available Not Available pregabalin 300 mg capsule TAKE ONE CAPSULE BY MOUTH TWICE DAILY active Not Available Not Available No t Available Linzess 145 mcg capsule TAKE 1 CAPSULE BY MOUTH EVERY DAY 2023 active Not Available Not Available Not Avai lable Farxiga 10 mg tablet active Not Available Not Available No t Available Xiidra 5 % eye drops in a dropperette active Not Available Not Available Not Available Paxlovid 300 mg (150 mg x 2)-100 mg tablets in a dose pack TAKE 2 NIRMATREL VIR TABLETS AND 1 RITONAVIR TABLET TOGETHER BY MOUTH TWICE DAILY FOR 5 DAYS 07/02 completed Not Available Not Available Not Available Miebo (PF) 100 % eye drops active Not Available Not Available Not Available Vitals Date Recorded Body height Body mass index (BMI) Body weight Oxygen saturation Oxygen saturation in Arterial blood by Pulse oximetry Heart rate Systolic blood pressure Diastolic blood pressure Provider Name and Address Organization Details Last Updated DateTime 4 158.12 cm 27.8 kg/m2 27289.6 3 g 95 % 95 % 67 /min 100 mm[Hg] 62 mm[Hg] Seth Lu MA [facility] 4 11:17:36 Date Recorded Body height Body mass index (BMI) Body weight Heart rate Oxygen saturation Oxygen saturation in Arterial blood by Pulse oximetry Systolic blood pressure Diastolic blood pressure Provider Name and Address Organization Details Last Updated DateTime 4 158.12 cm 27.7 kg/m2 70984.2 g 56 /min 96 % 96 % 98 mm[Hg] 64 mm[Hg] Marlyn Reynolds MA [facility] 4 11:20:31 Date Recorded Body height Body mass index (BMI) Body weight Heart rate Oxygen saturation Oxygen saturation in Arterial blood by Pulse oximetry Systolic blood pressure Diastolic blood pressure Provider Name and Address Organization Details Last Updated DateTime 5 158.12 cm 28.2 kg/m2 92695.6 1 g 74 /min 97 % 97 % 114 mm[Hg] 68 mm[Hg] Marlyn Reynolds MA [facility] 5 09:56:56 Social History Question Answer Notes LastModified by Organizat ion Details LastModified Time Tobacco Smoking Status Never Smoker Seth Lu MA [facility] 07/03/2023 11:13:42 Do You Have An Advance Directive? Yes Information not available 07/03/2023 Are You Blind Or Do You Have Difficulty Seeing? No Information not available 07/03/2023 What Is Your Level Of Caffeine Consumption? Occasional Information not available 07/03/2023 Are You Deaf Or Do You Have Serious Difficulty Hearing? No Information not available 07/03/2023 What Type Of Diet Are You Following? REGULAR Information not available 07/03/2023 Are There Any Guns Present In Your Home? No Information not available 07/03/2023 What Was The Date Of Your Most Recent Tobacco Screening? 05/19/2024 [email or web address] Information not available 05/19/2024 What Is Your Relationship Status? Information not available 07/03/2023 Do You Use Your Seat Belt Or Car Seat Routinely? Yes Information not available 07/03/2023 Do You Have Smoke And Carbon Monoxide Detectors In Your Home? Yes Information not available 07/03/2023 Has Tobacco Cessation Counseling Been Provided? No Information not available 07/03/2023 Sex: Female Functional Status Question Answer Note LastModified by Organizat ion Details LastModified Time Do you use any illicit or recreational drugs? No Information not available 07/03/2023 Do you or have you ever used any other forms of tobacco or nicotine? No Information not available 07/03/2023 What is your level of alcohol consumption? None Information not available 07/03/2023 Are you able to care for yourself? Yes Information n ot available 07/03/2023 What is your exercise level? Occasional Information not available 07/03/2023 Mental Status Question Answer Note LastModified by Organization D etails LastModified Time Do you feel stressed (tense, restless, nervous, or anxious, or unable to sleep at night)? [id number] Information not available 07/03/2023 Family History Relationship Description Onset Age of this Age Resolved Age Notes LastModified by Organization Details LastModified Time Mother Dementia [email or web address] Not availa ble 07/03/2023 11:13:21 Sister Dementia [email or web address] Not availa ble 07/03/2023 11:13:21 Father Heart disease [email or web address] Not available 06/12 11:13:27 Medical History Condition Response Coronary Artery Disease N Other N Atrial Fibrillation N High Blood Pressure N Depression N COPD N Blood Clots N Anxiety Disorder N Muscle, Joint, or Bone Problems N Acid Reflux (GERD) Y Cancer Y Stroke N High Cholesterol Y Liver Disease N Headaches N Kidney or Bladder Problems N Thyroid Problems N GI Problems N Skin Problems N Anemia N Heart Attack (GA) N Diabetes N Seizures/Epilepsy N Asthma N Allergies N Hepatitis N Osteoporosis N Heart Failure Y Gynecological History Statement/Question Response If Post Menopausal, Age at Menopause 54 Obstetrics History GPAL:G 2 P 2 0 0 2 Type Value Full Term 2 Living 2 Total 2 Immunizations Vaccine Type Date Status Note Provider Nam e and Address Organization Details Recorded Time Influenza, high-dose, trivalent, PF 4 completed Daron Bunch MD Attn: Accounting,[address] [facility], [place], [address], [facility] 01/11/2024 22:24:07 Pneumococcal conjugate PCV20, polysaccharide [id number] conjugate, adjuvant, PF 5 completed Daron Bunch MD Attn: Accounting[address] [facility], [place], [address], [facility] 05/19/2024 23:18:05 Past Encounters Encounter ID Performer Location Encounter Start Date Encounter Closed Date Diagnosis/Indication Diagnosis SNOMED-CT Code Diagnosis ICD10 Code Diagnosis Note [id number] Daron Bunch MD [facility] [address] [place] [address] 07/03/2023 10:43:44 07/03/2023 11:56:43 Herpes zoster 9980632 B02.9 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 Chronic sy stolic heart failure 648007392 I50.22 Trigeminal neuralgia 316 06933 G50.0 Osteoporosis 45648024 M8 1.0 Gastroesop hageal reflux disease without esophagitis 501730115 K21.9 Hyperlipidemia 16052493 E78.5 [id number] Daron Bunch MD [facility] [address] [place] [address] 01/11/2024 10:52:43 01/11/2024 11:55:33 Administration of influenza vaccine 28874176 Z23 Hyperlipidemia 90660556 E78.5 Osteoporosis 28658547 M8 1.0 Gastro-eso phageal reflux disease with esophagitis 766006648 K21.00 [id number] Daron Bunch MD [facility] [address] [place] [address] 05/19/2024 09:39:20 05/19/2024 11:03:59 Body mass index 25-29 - overweight 071304791 Z68.28 Overweight 485111928 E66 .3 Hyperlipidemia 09890925 E78.5 Vitamin D deficiency 347 72844 E55.9 Long-term drug therapy 432403985 Z79.899 Administra tion of pneumococcal vaccine 13194132 Z23 Gastro-eso phageal reflux disease with esophagitis 074364901 K21.00 Nonischemi c congestive cardiomyopathy 1206645759 04 I42.0 Health Concerns Section Related Observation LastModified by Organization Detai ls LastModified Time None Recorded Concern Status LastModified by Organization Details LastModified Time None Recorded Advance Directives Directive Y: Payers Encounter Date Sequence Insurance Name Policy Number Policy Mcneill Covered Member ID Mcneill Member ID Guarantor Name 07/03/2023 1 [employer] (MEDICARE REPLACEMENT/ ADVANTAGE - PPO) [id number] Della Fisher Sai [id number] Della Gibbs 01/11/2024 1 [employer] (MEDICARE REPLACEMENT/ ADVANTAGE - PPO) [id number] Della Gibbs [id number] Della Osorio Sai 05/19/2024 1 [employer] (MEDICARE REPLACEMENT/ ADVANTAGE - PPO) [id number] Della Gibbs [id number] Della Gibbs Notes Date Note Type Note Provider Name and Address Organization Details Recorded Time 07/03/2023 text/html Trigeminal neura lgia deep brain stimulator some tremor after that they are adjusting the device her symptoms are little bit better. Osteoporosis no new bone pain. GERD no nausea no vomiting chronic systolic heart failure nonischemic improving ejection fraction 1 time was 20% and I believe it has normalized on good medical therapy hyperlipidemia does try to follow a low-fat diet. HSV 1 Valtrex occasionally Daron Bunch MD Attn: Accounting[address] [place], [address], [facility] 07/11/2023 20:51:08 01/11/2024 text/html trigeminal neura lgia stable after deep brain stimulator device. Cardiomyopathy nonischemic maintained on beta-blockade MARZENA inhibitor and SL GT 2 inhibition no PND no orthopnea no edema osteoporosis remains stable symptomatically Daron Bunch MD Attn: Accounting[address] [place], [address], [facility] 01/11/2024 22:28:39 05/19/2024 text/html for her regular follow up overall she has been doing quite well cardiovascular status is stable still working with a deep brain stimulator team her trigeminal neuralgia fair no new bone pain nothing to suggest any osteoporotic fractures Daron Bunch MD Attn: Accounting[address] [facility], [place], [address], [facility] 05/19/2024 23:20:12 OBGyn Episode No OBEpisode recorded.
--- OUTSIDE RECORDS SUMMARY | 2024-08-30 01:14 | XMS_ITS ---
Author Organization [facility] Address [address] [place] [address] Care Team Providers Care Family Consultant Name Role Phone Arpan Bunch MD Primary Care Provider [phone] Favian Richards MD Unavailable [phone] Andra Navarrete MD Unavailable [phone] Active Problems Problem Noted Date Diagnosed Date Memory loss 05/19/2023 Abnormality of gait due to impairment of balance 05/19/2023 Bilateral hearing loss 04/27/2023 S/P deep brain stimulator placement 10/09/2022 Assessment & Plan (04/11/2024 1:38 PM ACID PURIFIER): Mrs. Della Gibbs is a 78 year-old right-handed patient with a predominately action and postural upper extremity tremor (and voice tremor) that has affected her ADLs. Tremor first developed in 2006 involving her voice and since then she has had a gradual progression of tremor which began to involve bilateral hands, initially the right and then most recently the left. She has been prescribed pregabalin and gabapentin in the past for trigeminal neuralgia at adequate doses and had minimal benefit on tremor or had intolerable side effects. Today she had mild to moderate tremor in both her hands. She also had moderate voice tremor . She was having some trouble with her gait with imbalance and she scuffed her right foot and had some ataxia. She was able to take only 1 tandem step. She had done Pt and OT in the past with some benefit . Her writing was legible. We interrogated her DBS and made a small increase to her current settings in program 1. Her previous setting was in program 2 to return incase of delayed side effects. She tolerated today's programming session well and denied any new sensations, paraesthesias, muscle cramping/pulling, dysarthria, or imbalance. Reviewed fall precautions and routine exercises. She could benefit from PT and OT will send rx. Recommendations: Okay to turn DBS off at night or okay to leave it on at all times. May return to previous setting in case of delayed side effects Encourage routine exercises Strict Fall precautions 4. Return as scheduled for following appts 5. Start Pt and OT rx sent Assessment & Plan (01/06/2024 9:43 PM CDT): Mrs. Della Gibbs is a 78 year-old right-handed patient with a predominately action and postural upper extremity tremor (and voice tremor) that has affected her ADLs. Tremor first developed in 2006 involving her voice and since then she has had a gradual progression of tremor which began to involve bilateral hands, initially the right and then most recently the left. She has been prescribed pregabalin and gabapentin in the past for trigeminal neuralgia at adequate doses and had minimal benefit on tremor or had intolerable side effects. Today she had mild to moderate tremor in both her hands. She also had moderate voice tremor . She was having some trouble with her gait with imbalance and she scuffed her right foot and had some ataxia. She was able to take only 1 tandem step. She had done Pt and OT in the past with some benefit . Her writing was legible. We interrogated her DBS and made a small increase to her current settings in program 1. Her previous setting was in program 2 to return incase of delayed side effects. She tolerated today's programming session well and denied any new sensations, paraesthesias, muscle cramping/pulling, dysarthria, or imbalance. Reviewed fall precautions and routine exercises. Recommendations: Okay to turn DBS off at night or okay to leave it on at all times. May return to previous setting in case of delayed side effects Encourage routine exercises Strict Fall precautions 4. Return as scheduled for following appts Assessment & Plan (09/16/2023 6:32 AM CDT): Mrs. Della Gibbs is a 78 year-old right-handed patient with a predominately action and postural upper extremity tremor (and voice tremor) that has affected her ADLs. Tremor first developed in 2006 involving her voice and since then she has had a gradual progression of tremor which began to involve bilateral hands, initially the right and then most recently the left. She has been prescribed pregabalin and gabapentin in the past for trigeminal neuralgia at adequate doses and had minimal benefit on tremor or had intolerable side effects. Today she had mild to moderate tremor in both her hands. She also had moderate voice tremor . She was having some trouble with her gait with imbalance and she scuffed her right foot and had some ataxia. She was unable to take any tandem steps. She was working with PT and now OT . She was also having trouble with her speech with word s . Her writing was legible. We interrogated her DBS and opted to try a different contact using only 3 ALL- in program 1 and at a lower mA. She had very good benefit for her tremor as well as ataxia at this setting. She opted to give her a small increase to her setting in program 1. Her previous setting was in program 2 to return incase of delayed side effects. She tolerated today's programming session well and denied any new sensations, paraesthesias, muscle cramping/pulling, dysarthria, or imbalance. Recommendations: Okay to turn DBS off at night or okay to leave it on at all times. May return to previous setting in case of delayed side effects Continue PT/OT as planned Strict Fall precautions 4. Return as scheduled for following appts Assessment & Plan (07/08/2023 9:19 AM CDT): Mrs. Della Gibbs is a 78 year-old right-handed patient with a predominately action and postural upper extremity tremor (and voice tremor) that has affected her ADLs. Tremor first developed in 2006 involving her voice and since then she has had a gradual progression of tremor which began to involve bilateral hands, initially the right and then most recently the left. She has been prescribed pregabalin and gabapentin in the past for trigeminal neuralgia at adequate doses and had minimal benefit on tremor or had intolerable side effects. Today she had mild to moderate tremor in both her hands. She also had moderate voice tremor which was bothersome to her. Her writing was legible. We interrogated her DBS opted to give her a small increase to her setting in program 1. Her previous setting was in program 2 to return incase of delayed side effects. She tolerated the changes well without any side effects. She had definite improvement in tremor after the change. Her postural and action tremor was slightly improved and her drawings were somewhat smoother post-programming. She did not have any worsening of her gait. She tolerated today's programming session well and denied any new sensations, paraesthesias, muscle cramping/pulling, dysarthria, or imbalance. She is currently getting PT and seeing benefit from it. She is going out of town for 2 months and requested a new Rx for Pt to do while she was away, will send rx. Recommendations: Okay to turn DBS off at night or okay to leave it on at all times. May return to previous setting in case of delayed side effects Continue PT when out of town, rx given Strict Fall precautions 4. Return as scheduled in September for following programming Assessment & Plan (05/19/2023 3:14 PM ACID PURIFIER): Mrs. Della Gibbs is a 78 year-old right-handed patient with a predominately action and postural upper extremity tremor (and voice tremor) that has affected her ADLs. Tremor first developed in 2006 involving her voice and since then she has had a gradual progression of tremor which began to involve bilateral hands, initially the right and then most recently the left. She has been prescribed pregabalin and gabapentin in the past for trigeminal neuralgia at adequate doses and had minimal benefit on tremor or had intolerable side effects. She similarly had tried propranolol in the past. She has had benefit from DBS and did have improvement in her gait abnormality with right foot dragging after the last visit during which the pulse width was reduced from 90 to 70. Since that decrease she has had only one mechanical fall in which she tripped over an unseen basket on the floor, otherwise no falls and improved stumbling. Today she had mild tremor in both her hands. She also had moderate voice tremor which was bothersome to her. Her writing was legible. We interrogated her DBS and provided her with a new program # 3 with an increased stimulation three-tenths to 3.3 mA (from her arrival stimulation of 3 mA). Her postural tremor was slightly improved and her drawings were somewhat smoother post-programming. She did not have any worsening of her gait. She tolerated today's programming session well and denied any new sensations, paraesthesias, muscle cramping/pulling, dysarthria, or imbalance. She is interested in restarting PT and I will provide her with a new prescription. She will also need a follow-up to be scheduled with Dr. Danielson. We will follow-up her cognitive testing today and I will check her B12, folate, and TSH since these do not appear to have been performed in the past. Recommendations: Okay to turn DBS off at night or okay to leave it on at all times. May return to previous setting in case of delayed side effects Restart physical therapy (PT) - prescription given Fall precautions Stay after visit to have labs checked Cognitive testing today Return as scheduled 07/08/23 for further DBS programming Schedule return visit with Dr. Danielson Assessment & Plan (04/08/2023 9:26 AM ACID PURIFIER): Ms. Della Gibbs is a 77 y.o. old right handed patient with a predominantly action and postural tremor that affected her ADLs. She first developed tremor involving her voice in 2006. Since then she had gradual progression of the tremor, which started to affect her hands, initially right then more recently left. She was prescribed pregabalin, propranolol and gabapentin with adequate doses and either had minimal benefit or had intolerable side effects of sedation. Ms Gibbs had very good benefit from last dbs programming. However she felt her walking was worse with a drag to her right foot. She was also having few more stumbles. Today she had mild tremor in both her hands. She also had moderate voice tremor which was bothersome to her. Her writing was legible . We interrogated her dbs settings and opted to give her an increase to her current settings in program 1. We left her previous setting in program 2 to return incase of delayed side effects. We also reduced her pw from 90 to 70 to help with her gait. She had very good tremor control in her right hand after the change. She had good penmanship and very mild tremor with drawing . She also did not have the drag to her right foot anymore and felt her gait was more normal She has started PT and seeing some benefit from it, she will continue it. She tolerated today's programming denying paresthesia, tightening dystonia, change in speech , or balance. Reviewed fall precautions and to exercise as tolerated. REQS 1. Okay to turn DBS off at night or okay to leave it on at all times. May return to previous setting in case of delayed side effects 2. Exercise as tolerated 3. Fall precautions 4. Continue pt 5. Return as scheduled in for following appt Assessment & Plan (02/17/2023 9:28 AM ACID PURIFIER): Ms. Della Gibbs is a 77 y.o. old right handed patient with a predominantly action and postural tremor that affected her ADLs. She first developed tremor involving her voice in 2006. Since then she had gradual progression of the tremor, which started to affect her hands, initially right then more recently left. She was prescribed pregabalin, propranolol and gabapentin with adequate doses and either had minimal benefit or had intolerable side effects of sedation. Ms Gibbs had very good benefit from last dbs programming. Today she had moderate postural and action tremor in her right hand and mild tremor in her left hand. She also had moderate voice tremor which was bothersome to her. Her writing was legible . We interrogated her dbs settings and opted to give her an increase to her current settings in program 1. We left her previous setting in program 2 to return incase of delayed side effects. She had very good tremor control in her right hand after the change. She had good penmanship and very mild tremor with drawing . Her balance was not very good with tandem gait before and after programming. She has started PT and seeing some benefit from it, she will continue it. She was told by therapist her low back pain also caused some of her balance problem and she will be able to work with her on it with a new rx which will include that, will send new rx for it. She tolerated today's programming denying paresthesia, tightening dystonia, change in speech , or balance. REQS 1. Okay to turn DBS off at night or okay to leave it on at all times 2. Exercise as tolerated 3. Fall precautions 4. Continue pt, new rx provided 5. Return as scheduled in for following appt Assessment & Plan (01/27/2023 3:07 PM CDT): Ms. Della Gibbs is a 77 y.o. old right handed patient with a predominantly action and postural tremor that affected her ADLs. She first developed tremor involving her voice in 2006. Since then she had gradual progression of the tremor, which started to affect her hands, initially right then more recently left. She was prescribed pregabalin, propranolol and gabapentin with adequate doses and either had minimal benefit or had intolerable side effects of sedation. Ms Gibbs had very good benefit from last dbs programming. Today she had moderate postural and action tremor in her right hand and mild tremor in her left hand. She also had moderate voice tremor which was bothersome to her. Her writing was legible . We interrogated her dbs settings and opted to give her an increase to her current settings in program 1. We left her previous setting in program 2 to return incase of delayed side effects. She had very good tremor control in her right hand after the change. She had good penmanship and very mild tremor with drawing . Tanja balance was not very good and she had trouble taking tandem steps. We discussed starting PT, will send rx. She tolerated today's programming denying paresthesia, tightening dystonia, change in speech , or balance. REQS 1. Okay to turn DBS off at night or okay to leave it on at all times 2. Exercise as tolerated 3. Fall precautions 4. Start pt rx sent 5. Return as scheduled in for following appt Assessment & Plan (12/24/2022 4:00 PM CDT): Ms. Della Gibbs is a 77 y.o. old right handed patient with a predominantly action and postural tremor that affected her ADLs. She first developed tremor involving her voice in 2006. Since then she had gradual progression of the tremor, which started to affect her hands, initially right then more recently left. She was prescribed pregabalin, propranolol and gabapentin with adequate doses and either had minimal benefit or had intolerable side effects of sedation. Ms Gibbs had very good benefit from last dbs programming, however her benefit only lasted for few days. She was frustrated her tremor had returned since she expected complete resolution of the tremor even though we had discussed during the initial visit that it takes about 4-6 months to get optimized. Today she had moderate postural and action tremor in her right hand and mild tremor in her left hand. She also had moderate voice tremor which was bothersome to her. Her writing was not legible and she had trouble with drawings. We interrogated her dbs settings and opted to give her an increase to her current settings in program 1. We left her previous setting in program 2 to return incase of delayed side effects. She had very good tremor control in her right hand after the change. She had good penmanship and very mild tremor with drawing . She also had some improvement in her voice tremor. Her balance was not very good and she had trouble taking tandem steps. We discussed starting PT, will send rx. She tolerated today's programming denying paresthesia, tightening dystonia, change in speech , or balance. REQS 1. Okay to turn DBS off at night or okay to leave it on at all times 2. Exercise as tolerated 3. Fall precautions 4. Start pt rx sent 5. Return as scheduled in 4 weeks or sooner if needed Assessment & Plan (11/19/2022 1:53 PM CDT): Ms. Della Gibbs is a 77 y.o. old right handed patient with a predominantly action and postural tremor that affected her ADLs. She first developed tremor involving her voice in 2006. Since then she had gradual progression of the tremor, which started to affect her hands, initially right then more recently left. She was prescribed pregabalin, propranolol and gabapentin with adequate doses and either had minimal benefit or had intolerable side effects of sedation. Ms Gibbs had very good benefit from last dbs programming, however her benefit only lasted for few days. She was frustrated her tremor had returned since she expected complete resolution of the tremor even though we had discussed during the initial visit that it takes about 4-6 months to get optimized. Today she had moderate postural and action tremor in her right hand and mild tremor in her left hand. She also had moderate voice tremor which was bothersome to her. Her writing was not legible and she had trouble with drawings. We interrogated her dbs settings and opted to give her an increase to her current settings in program 1. We left her previous setting in program 2 to return incase of delayed side effects. We also increased her pw from 60 to 90. She had very good tremor control in her right hand after the change. She had good penmanship and very mild tremor with drawing . She also had some improvement in her voice tremor. Her gait and balance was okay and she was able to take 10 tandem steps slowly. She tolerated today's programming denying paresthesia, tightening dystonia, change in speech , or balance. REQS 1. Okay to turn DBS off at night or okay to leave it on at all times 2. Exercise as tolerated 3. Fall precautions 4. Physical therapy when DBS settings further optimized 5. Return as scheduled in 4 weeks or sooner if needed Assessment & Plan (10/09/2022 12:18 PM CDT): Ms. Della Gibbs is a 77 y.o. old right handed patient with a predominantly action and postural tremor that affected her ADLs. She first developed tremor involving her voice in 2006. Since then she had gradual progression of the tremor, which started to affect her hands, initially right then more recently left. She was prescribed pregabalin, propranolol and gabapentin with adequate doses and either had minimal benefit or had intolerable side effects of sedation. Ms Gibbs had very good benefit from DBS today. Before turning on DBS today she had moderate postural and action tremor in her right hand. She did not have any tremor in her left hand. She also had moderate voice tremor which was bothersome to her. She was not able to write or draw . At today's visit, each contact was tested for benefit. She had mild tingling in all contacts but it was transient. She tolerated today's programming denying paresthesia, tightening dystonia, change in speech , or balance. Full system check was WNL. She had very good benefit for her tremor with all contacts and she was able to write her name and all her drawings and cup pouring had just mild tremor. However she she seemed to have best benefit at contact 4. We opted to choose that as the final contact at Case 4 1.5 mA 60 186. At this contact she had very good tremor in her right hand, very good penmanship and very mild tremor with drawing . She also had some improvement in her voice tremor. Her gait and balance remained good and she was able to take 10 tandem steps slowly. She tolerated today's programming denying paresthesia, tightening dystonia, change in speech , or balance. She was instructed about the contraindicated procedures in the context of DBS treatment, including the need to call our office should an MRI be needed; to avoid diathermy, therapeutic ultrasound, and chiropractic manipulation of the head and neck. She was provided an Tandem Transit Patient Dye Range Operator Cloth with surgery to manipulate and assess the status of his/her stimulators. I instructed her about how to use it, including checking whether the stimulators were on or off and turning them on and off. REQS 1. Okay to turn DBS off at night or okay to leave it on at all times 2. Exercise as tolerated 3. Fall precautions 4. Physical therapy when DBS settings further optimized 5. Return as scheduled in 4 weeks or sooner if needed Rib pain 09/01/2022 Left wrist pain 03/10/2022 08/25/2022 Osteoarthritis of carpometacarpal (CMC) joint of thumb 03/10/2022 08/25/2022 Radial styloid tenosynovitis of left hand 202108/25/2022 Congestive heart failure 06/29/2021 Overview (05/19/2023): heart catheterization [place] normal coronary arteries EF 10-15% 3+ to 4+ MR May 2021 COVID 01/22/2021 Synovial cyst of popliteal space 10/31/2019 Current tear of medial cartilage or meniscus of knee 10/31/2019 Derangement of posterior horn of medial meniscus 10/31/2019 Disorder of shoulder 10/31/2019 Encounter for removal of sutures 10/31/2019 Knee pain 10/31/2019 Localized, primary osteoarthritis 10/31/2019 Neck pain 10/31/2019 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 Della Gibbs is a 78 y.o. female, who presents for follow-up for essential tremor (ET). She has left VIM-DBS. She is worse since the last visit. Tremor improved partially with the stimulation and she had clear worsening of the balance with the progressive changes in the stimulation. She does not have any other side effects. Left hand tremor remains stable. We had a long conversation about DBS programming. We talked I was sorry about her not having the accurate impression of the length of programming and will use it as a feedback for future counseling. Her gait changes are likely a result of high stim settings, with double monopolar. We also discussed she has ataxia in the right arm and this is not something that will respond to stim. It is unclear whether she will have additional improvement of the tremor given the associated ataxia. I sent recommendations to our TELEVISION SERVICE ENGINEER to make adjustments in the DBS setting and see if she has less balance issues. Plan: We will discuss stimulation strategies to change in the next programming visit. We will save the current settings so that you will have it as a back up. Potential medication side effects were discussed during the encounter. Assessment & Plan (08/12/2022 9:18 AM CDT): Images from the original note were not included. Ms. Della Gibbs is a 77 y.o. old right handed patient with a predominantly action and postural tremor that affected her ADLs. She first developed tremor involving her voice in 2006. Since then she had gradual progression of the tremor, which started to affect her hands, initially right then more recently left. She was prescribed pregabalin, propranolol and gabapentin with adequate doses and either had minimal benefit or had intolerable side effects of sedation. The natural history of the illness and the treatment options (including the surgical ones) were extensively discussed with Ms. Della Gibbs and her . Her tremor affected her ADLs. She has failed medical treatment and therefore is a good candidate for left deep brain stimulation surgery of the ventral intermediate nucleus of the thalamus (VIM). Indeed, she has no major medical illness and no significant cognitive deficit by history. I discussed with her all aspects of this procedure (including the actual performance of the procedure, the potential benefits and complications and the post-surgical programming sessions). I answered all her questions pertaining to the procedure. We discussed that we start by implanting the side of the brain controlling the dominant hand (in her case the left hemisphere), and that only later will we assess the need for bilateral ViM stimulation given its elevated risk of stimulation side effects such as dysarthria and imbalance. She would like to proceed with left deep brain stimulation surgery of the ventral intermediate nucleus of the thalamus (VIM). We were unable to discuss different manufacturers due to time constraints. Recommendations: 1. Refer to Dr. Richards left deep brain stimulation surgery of the ventral intermediate nucleus of the thalamus (VIM) for Essential Tremor. 2. Send ventral intermediate nucleus of the thalamus (VIM) DBS packet. A total of 70 minutes were spent face to face this patient during this visit, of which greater than 50% of the time was spent talking about the treatment and management of the symptoms. Prescribed medications: risks, benefits, potential medical consequences and complications ( side effects ), alternatives and indications for treatment were discussed. All questions were answered to satisfaction of patient and/or family members. Lorna Danielson MD Assessment & Plan (12/08/2020 11:19 AM CDT): ASSESSMENT - 75 y.o. woman with essential tremor and trigeminal neuralgia, with essential tremor for 14 years that began around 2006 with voice tremor. Voice tremor was the prominent symptom and hand tremor was quite mild for a long time, so mild that for a long time she did not take medications. - ET: She did not try primidone because of fear that lamotrigine benefit on [place] might wane, as she was having a lot of facial pain. Her tremor has worsened. She can no longer write her name, and eating is more difficult. Now that her pain has improved, she is willing to try primidone. - Dysphagia: no change. - Trigeminal neuralgia: managed by Dr. Richards (neurosurgery) PLAN (phrased as addressed to the patient): - As we discussed, now that your facial pain is better controlled, I suggest trying primidone starting with a very low dose and increasing slowly. If at any point you feel an increase in facial pain, stop primidone and contact my office. - I will wait to hear from Dr. Richards whether he agrees with this plan, and then send the prescription for primidone. This encounter's total aqpr-bz-kcqs time was greater than 20 minutes. I spent more than 50% of this time in counseling and/or coordination of care as documented in the note. The patient visit started at 1325 and ended at 1348. Greater than 50% of the visit was spent on counseling and coordinating care. Patient was counseled on rationale for trying primidone Assessment & Plan (10/17/2019 5:08 PM CDT): Images from the original note were not included. - 74 y.o. woman with essential tremor for 13 years that began around 2006 with voice tremor. Voice tremor was the prominent symptom and hand tremor was quite mild for a long time, so mild that for a long time she did not take medications. - Dx: remains ET> - ET: the voice is still the most affected body part, but her hand tremor norw interferes with eating. Therefore I will try medication. - Dysphagia: no change; swallowing test last June was unremarkable. - Trigeminal neuralgia: managed by Dr. Richards (neurosurgery) PLAN (phrased as addressed to the patient): - As we discussed, I would like you to try a medication for hand tremor, propranolol. - Start propranolol 20 mg tabs: week 1, 1/2 tab 2x/day (morning and dinner); week 2 and after, 1 tab 2x/day. - Look out for possible dizziness after standing up - Contact my office in 4 weeks to report whether your hand tremor is better. This was a telemedicine visit with Della Gibbs alone which took place via Real-time video connection ([employer], [employer] or similar). During the visit, I was located in the office and the patient was located at home in the [facility]. The patient visit started at 1634 and ended at 1703. Greater than 50% of the video/phone call was spent on counseling and coordinating care. Patient was counseled on rationale for trying propranolol. The patient: has been informed that the visit may not be secure and acknowledged the information. The option of participating in a telephone or video visit during the COVID-19 public health emergency was explained to them. After being given an opportunity to ask questions about and discuss this type of visit, they verbally consented to proceeding with the telephone/video visit and understand that this service replaces an office visit and they may be billed and/or responsible for any applicable copayments. Agustin Sr MD Assessment & Plan (05/10/2018 8:40 AM ACID PURIFIER): - 73 y.o. woman with essential tremor for 12 years (onset around 2006) that began with voice tremor, with voice tremor the prominent symptom and hand tremor so mildit has not needed medications. - Dx: today she mentioned intermittent jerks in her hands on posture (while holding a book, e.g.) and dropping objects (previously present). The most likely dx remains ET, but myoclonus does not fit this dx well. She has not taken new medications. I am not sure what the myoclonus is due to. Will check renal function just in case it is uremic myoclonus (she last last labs with PMD were 6 months ago). - ET: voice remains the most affected part by tremor, bothersome but she had vocal cord Botox in the past and does not want more (not effective enough). Hand tremor does not require meds. - Dysphagia: likely part of pharyneal tremor causing voice tremor and tremor on deep inspiration. - Trigeminal neuralgia: managed by Dr. Richards (neurosurgery) - Tungsten ring for tremor: I explained that this is not a medically recognized treatment for tremor but I am not opposed to her wearing a tungsten ring for her tremor. 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 Past Treatment and Therapy Plans Lifetime Dose Tracking * Chemical Lifetime Dose Automatic Entry Manual Entr y Fluoro Time 1.83 minutes 1.83 minutes 0 minutes DLP 921 mGycm 921 mGycm 0 mGycm Resolved Problems Problem Noted Date Diagnosed Date Resolved Date Osteoporosis with current pa thological fracture 09/02/2018 09/02/2018
--- OUTSIDE RECORDS SUMMARY | 2024-08-30 01:14 | XMS_ITS | Referral Summary ---
Author Organization [facility] Address [address] [place] [address] Care Team Providers Care Marketing Outreach Coordinator Name Role Phone Arpan Bunch MD Primary Care Provider [phone] Faivan Richards MD Unavailable [phone] Andra Navarrete MD Unavailable [phone] Encounters Date Type Department Care Team Description 06/29/2024 Telephone [facility] [address] [place] [id number] Mili Sifuentes, CHARLEY from Last 3 Months Allergies Active Allergy Reactions Criticality Noted Date Comments Codeine Hallucinations,Vomiting Medium 02/17/2023 Mold Wheezing Medium Morphine Hallucinations,Nausea only,Vomiting Medium 02/17/2023 Medications calcium carbonate-vitami n D3 1500 mg (600 mg elemental) -200 units per tablet Take 1 tablet by mouth 2 (two) times a day Active cholecalciferol (VITAMIN D-3) 25 mcg (1,000 unit) tablet Take 1 tablet (1,000 Units total) by mouth 2 (two) times a day Active famciclovir (FAMVIR) 500 mg tablet Take 1 tablet (500 mg total) by mouth as needed (cold sores) 1 9 Active famotidine (PEPCID) 20 mg tablet Take 1 tablet (20 mg total) by mouth as needed for indigestion or heartburn 1 9 Active multivitamin capsule Take 1 capsule by mouth nightly Active Linzess 145 mcg capsule Take 1 capsule (145 mcg total) by mouth nightly 3 Active meloxicam (MOBIC) 15 mg tablet Take 1 tablet (15 mg total) by mouth daily 3 Active atorvastatin (LIPITOR) 20 mg tablet Take 1 tablet every day by oral route. Active valACYclovir (VALTREX) 500 mg tablet Take 1 tablet (500 mg total) by mouth 2 (two) times a day as needed 4 Active gabapentin (NEURONTIN) 100 mg capsule TAKE 2 CAPSULES(200 MG) BY MOUTH THREE TIMES DAILY 180 capsule 3 4 Active furosemide (Lasix) 20 mg tablet Take 1 tablet (20 mg total) by mouth daily 90 tablet 3 4 11/02/19 25 Active metoprolol XL (TOPROL-XL) 25 mg extended release tablet Take 1 tablet (25 mg total) by mouth 2 (two) times a day 180 tablet 3 4 11/30/19 25 Active Miebo, PF, 100 % drops 4 Active albuterol HFA (PROVENTIL HFA,VENTOLIN HFA,PROAIR HFA) 90 mcg/actuation inhaler Inhale 2 puffs every 6 (six) hours as needed for wheezing or shortness of breath 4 Active alendronate (FOSAMAX) 70 mg/75 mL solution Take 75 mL (70 mg total) by mouth every 7 days 4 Active spironolactone (ALDACTONE) 25 mg tabletIndication s:chronic heart failure,hyperten aneesh Take 0.5 tablets (12.5 mg total) by mouth nightly 45 tablet 3 4 03/29/20 25 Active lisinopriL (PRINIVIL,ZESTRI L) 2.5 mg tablet Take 1 tablet (2.5 mg total) by mouth nightly 90 tablet 3 4 04/04/20 25 Active cycloSPORINE (Vevye) 0.1 % drops Active Xiidra 5 % dropperette 4 Active Farxiga 10 mg tabletIndication s:Heart Failure Take 1 tablet (10 mg total) by mouth daily 90 tablet 3 5 05/09/19 26 Active lamoTRIgine (LaMICtal) 100 mg tablet TAKE 1 TABLET(100 MG) BY MOUTH TWICE DAILY 180 tablet 3 5 Active gabapentin (NEURONTIN) 300 mg capsule Take 1 capsule (300 mg total) by mouth 3 (three) times a day 270 capsule 3 5 07/12/19 26 Active pregabalin (LYRICA) 300 mg capsule Take 1 capsule (300 mg total) by mouth 2 (two) times a day 180 capsule 1 5 01/10/20 25 Active Active Problems Problem Noted Date Diagnosed Date Memory loss 05/19/2023 Abnormality of gait due to impairment of balance 05/19/2023 Bilateral hearing loss 04/27/2023 S/P deep brain stimulator placement 10/09/2022 Assessment & Plan (04/11/2024 1:38 PM TECHNICAL SOURCING RECRUITER): Mrs. Della Gibbs is a 78 year-old [...] programming Assessment & Plan (05/19/2023 3:14 PM TECHNICAL SOURCING RECRUITER): Mrs. Della Gibbs is a 78 year-old [...] Danielson Assessment & Plan (04/08/2023 9:26 AM TECHNICAL SOURCING RECRUITER): Ms. Della Gibbs is a 77 y.o. [...] appt Assessment & Plan (02/17/2023 9:28 AM TECHNICAL SOURCING RECRUITER): Ms. Della Gibbs is a 77 y.o. [...] had intolerable side effects of sedation. Ms Gbibs had very good benefit from last dbs [...] head and neck. 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 I sent recommendations to our STRATEGY EXECUTION CONSULTANT to make adjustments in the DBS setting [...] the prescription for primidone. This encounter's total jjez-pe-uzug time was greater than 20 minutes. I [...] which took place via Real-time video connection ([employer], [employer] or similar). During the visit, I was located in the office and the patient was located at home in the state of [place]. The patient visit started at 1634 and [...] MD Assessment & Plan (05/10/2018 8:40 AM TECHNICAL SOURCING RECRUITER): - 73 y.o. woman with essential tremor [...] 12/22/2011 Other diseases of vocal cords 09/13/2010 Resolved Problems Problem Noted Date Diagnosed Date Resolved Date Osteoporosis with current pa thological fracture 09/02/2018 09/02/2018 Immunizations Immunization Administration Dates Next Due DTaP 08/11/2014 Influenza, Quad, Adjuvantate d, Intramuscular 02/03/2021 Influenza, Quadrivalent, Hig h Dose, Preservative Free, Intrr 02/24/2023,01/19/2020 Influenza, Trivalent, High D ose, Split, Preservative Free, Intramuscular 01/08/2019,01/19/2018,01/22/2017,01/26,01/01/2015,12/08/2013,12/25/2012 Influenza, Trivalent, IM (MDV) 01/26/2016 Influenza, Trivalent, Preser vative Free, Intramuscular 01/15/2016,01/11/2015,12/12/2013 Influenza, Unspecified 01/25/2018 Moderna Sars-cov-2 Bivalent Vaccine 50 Mcg/0.5 mL (12+ YRS)-Blue/Chiang 08/14/2021,03/29/2021 Pfizer Sars-cov-2 Monovalent Vaccination (6 Mos-4 Yrs) 03/10/2022 Pneumococcal Conjugate PCV 13 10/10/2014 Pneumococcal Polysaccharide PPV23 02/24/2018 Tdap 08/10/2014 ZOSTER Recombinant 04/14/2018,01/30/2018, 018 Social History Tobacco Use Types Packs/Day Years Used Date Smoking Tobacco: Never Passive Smoke Exposure: Never Smokeless Tobacco: Never Tobacco Cessation:Counseling Given: Not Answered Alcohol Use Standard Drinks/Week Comments Yes 3 (1 standard drink = 0.6 oz pur e alcohol) occasional AUDIT-C Answer Date Recorded Q1: How often do you have a drink containing alcohol? Never 10/02/2022 Q2: How many drinks containi ng alcohol do you have on a typical day when you are drinking? Patient does not drink Q3: How often do you have si x or more drinks on one occasion? Never 10/02/2022 Personal Safety Answer Date Recorded Have you ever been in or are you currently in a harmful physical or emotional relationship or is someone making you feel afraid or unsafe? Denies 09/23/2022 Comments No Sex and Gender Information Value Date Recorded Sex Assigned at Not on file Legal Sex Female 12:59 AM TECHNICAL SOURCING RECRUITER Gender Identity Not on file Sexual Orientation Not on file Occupation Industry Job Start Date Job End Date Retired Not on file Not on file Not on file Last Filed Vital Signs Vital Sign Reading Time Taken Comments Blood Pressure 137/83 04/11/2024 12:22 PM TECHNICAL SOURCING RECRUITER Pulse 75 04/11/2024 12:22 PM TECHNICAL SOURCING RECRUITER Temperature 36.2 C (97.1 F) 01/06/2024 2:01 PM CDT Respiratory Rate 23 09/24/2022 10:00 AM CDT Oxygen Saturation 96% 02/09/2024 9:20 AM CDT Inhaled Oxygen Concentration - - Weight 70.6 kg (155 lb 9.6 oz) 04/11/2024 12:22 PM TECHNICAL SOURCING RECRUITER Height 157.5 cm (5' 2 ) 04/11/2024 12:22 PM TECHNICAL SOURCING RECRUITER Body Mass Index 28.46 04/11/2024 12:22 PM TECHNICAL SOURCING RECRUITER Plan of Treatment Not on file Medical Devices Implanted Type Area Heel Seater Device Identifier Shelf Expiration Date Model / Serial / Lot [employer] V[employer] 1.27mm 40cm 1.5mm 1.5mm [facility] - [id number] - [id number] Implanted:Qty: 1 on 09/23/2022 by Favian Richards MD at [facility] Left: Brain [employer] 11/19/2023 [id number] / [id number] / [employer] 4 Hole Straight Mandible Regular Plate Bone Titanium Sterile 2mm - [id number] Implanted:Qty: 2 on 09/23/2022 by Favian Richards MD at [facility] Left: Cranial [employer] / / [employer] Od2 Mm L[address] Maxillofacial Screw Bone Titanium - [id number] Implanted:Qty: 4 on 09/23/2022 by Favian Richards MD at [facility] Left: Cranial [employer] / / Gutiérrez V[employer] Infinity 60cm Extension Neurostimulator Deep 6372ans - [id number] - [id number] Implanted:Qty: 1 on 09/23/2022 by Favian Richards MD at [facility] Left: Cranial [employer] 03/18/2024 [id number] / [id number] / G[employer] Infinty 5 Ipg 6660ans - [id number] - [id number] Implanted:Qty: 1 on 09/23/2022 by Favian Richards MD at [facility] Left: Chest [employer] 04/27/2024 [id number] / [id number] / Procedures Procedure Name Priority Date/Time Associated Diagnosis Comments SCREENING MAMMOGRAM RIGHT W LUTHER UNILATERAL ONLY Schedule Routine, Read Routine (OP Routine) 09/02/2018 10:25 AM CDT Encounter for screening mammogram for malignant neoplasm of breast from Last 3 Months or Most Recently Relevant to Health Maintenance Results * Screening Mammogram Right W Luther Unilateral Only (09/02/2018 10:25 AM CDT) Anatomical Region Laterality Modality Breast Right Mammography Narrative 09/07/2018 5:19 PM CDT Mammogram Technique: Right Breast Digital Breast Tomosynthesis, Unilateral C-view 2D Screening mammogram. Views obtained: right craniocaudal and right mediolateral oblique. Computer Aided Detection was performed. Mammogram Findings: The present examination has been compared to prior imaging studies performed at [facility] on 06/06/2015, 06/24/2016 and 07/21/2017. There are scattered areas of fibroglandular density. There is no suspicious abnormality in the right breast. Patient status post contralateral mastectomy for personal history of breast cancer. Impression: Annual screening mammography is recommended. OVERALL FINAL ASSESSMENT: BI-RADS CATEGORY 1: Negative. Procedure Note Aleena Royal MD - 09/07/2018 Mammogram Technique: Right Breast Digital Breast Tomosynthesis, Unilateral C-view 2DScreening mammogram. Views obtained: right craniocaudal and right mediolateral oblique. Computer Aided Detection was performed. Mammogram Findings: The present examination has been compared to prior imaging studies performed at [facility] on 06/06/2015, 06/24/2016 and 07/21/2017. There are scattered areas of fibroglandular density. There is no suspicious abnormality in the right breast. Patient status post contralateral mastectomy for personal history ofbreast cancer. Impression: Annual screening mammography is recommended. OVERALL FINAL ASSESSMENT: BI-RADS CATEGORY 1: Negative. Shannon Medina STRATEGY EXECUTION CONSULTANT IMG MAMMO PROCEDURES Final Resu lt from Last 3 Months or Most Recently Relevant to Health Maintenance Insurance [facility] MEDIC[facility] Address[facility] [id number] [place] [address] [facility] MEDICARE ADVANTAGE [facility] MEDICARE [facility] MEDICARE Advance Directives For more information, please contact: [phone] Documents on File Type Date Recorded Patient Finance Advisor Expl anation ADVANCE DIRECTIVE 09/23/2022 8:58 AM [facility] e of the Individual Signing ADVANCE DIRECTIVE 09/23/2022 8:57 AM Power of Analytical Chemistry Teacher-Financial/Medical * Full Code (Latest Code Status on File) Date Activated Date Inactivated Comments 09/23/2022 1:30 PM 09/24/2022 3:31 PM Care Teams Marketing Outreach Coordinator Relationship Specialty Start Date End Date Arpan Bunch MD PCP - General 04/20/17 Favian Richards MD Referring Physician Neurosurgery 05/10/18 Andra Navarrete MD [id number] [address] Consulting Physician Cardiology 03/29/24
--- OUTSIDE RECORDS SUMMARY | 2024-08-30 01:14 | XMS_ITS | CONTINUITY OF CARE DOCUMENT ---
Author Name jayro dial Address Unknown Organization [facility] Address [id number] [place] [address] [address] [place] [address] Phone [phone] Care Team Providers Care Refractory Manager Name Role Phone Tristan JOHNSON, Antonino Unavailable DARON REED MD Unavailable [phone] DARON REED MD Unavailable INSURANCE PROVIDERS Payer name Policy type / Coverage type [employer] [place] B Medicare [id number] [employer] OPEN ACCESS Other [id number]
--- OUTSIDE RECORDS SUMMARY | 2024-08-30 01:15 | XMS_ITS | Clinical Summary ---
Author Organization [facility] Address [address] [place] [address] Care Team Providers Care Screen Printing Supervisor Name Role Phone Arpan Bunch MD Primary Care Provider [phone] Favian Richards MD Unavailable [phone] Andra Navarrete MD Unavailable [phone] Allergies Active Allergy Reactions Criticality Noted Date [...] 10/09/2022 Assessment & Plan (04/11/2024 1:38 PM EARLY YEARS TEACHER): Mrs. Della Gibbs is a 78 year-old [...] programming Assessment & Plan (05/19/2023 3:14 PM EARLY YEARS TEACHER): Mrs. Della Gibbs is a 78 year-old [...] Danielson Assessment & Plan (04/08/2023 9:26 AM EARLY YEARS TEACHER): Ms. Della Gibbs is a 77 y.o. [...] appt Assessment & Plan (02/17/2023 9:28 AM EARLY YEARS TEACHER): Ms. Della Gibbs is a 77 y.o. [...] head and neck. 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 I sent recommendations to our CITY EDITOR to make adjustments in the DBS setting [...] the prescription for primidone. This encounter's total ckdu-ag-mhsh time was greater than 20 minutes. I [...] which took place via Real-time video connection ([employer], [employer] or similar). During the visit, I was located in the office and the patient was located at home in the state of [place]. The patient visit started at 1634 and [...] MD Assessment & Plan (05/10/2018 8:40 AM EARLY YEARS TEACHER): - 73 y.o. woman with essential tremor [...] with current pa thological fracture 09/02/2018 09/02/2018 Encounters Date Type Department Care Team Description 06/29/2024 Telephone [facility] Movement Disorders [address] [place] [id number] Mili Sifuentes RN from Last 3 Months Immunizations Immunization Administration Dates Next Due DTaP [...] 02/24/2018 Tdap 08/10/2014 ZOSTER Recombinant 04/14/2018,01/30/2018, 018 Surgical History Surgery Date Site/Laterality Comments OTHER SURGICAL HISTORY Cancer, breast: Mastectomy [place] DSTRJ TRIGEMINAL NRV SUPRAORB INFRAORB BRANCH Craniotomy For Suboccipital Cranial Nerve Decompression - (Added by TW Conv) PARATHYROID GLAND SURGERY KNEE SURGERY FLUORO GUIDED INJECTION SHOULDER RIGHT 02/16/2018 Right Medical History Medical History Date Comments Osteoporosis Osteoporosis Gastroesophageal reflux disease GERD Malignant neoplasm of male breast (HCC) 1998 Cancer, breast Personal history of other sp ecified conditions History of breast disorder - (Added by TW Conv) Neuromuscular disorder (HCC) Family History Medical History Relation Name Comments Heart attack Father Heart disease Father Heart disease; /Family history of cardiac disorder - (Added by TW Conv) Hypertension Father Cancer Maternal Grandmother Alzheimer's disease Mother Cancer Mother Heart disease Mother Heart disease; Memory loss Mother Pancreatic cancer Mother Cancer, pa ncreatic; /Family history of pancreatic cancer - (Added by TW Conv) Heart disease Sister 1 Family history of cardiac disorder - (Added by TW Conv) Hyperlipidemia Sister 2 Family histor y of hypercholesterolemia - (Added by Conv) Anesthesia problems Neg Hx Malig Hypertension Neg Hx Malig Hyperthermia Neg Hx Pseudochol deficiency Neg Hx Relation Name Status Comments Father Alive Maternal Grandmother Mother Alive Sister 1 Sister 2 Social History Tobacco Use Types Packs/Day Years [...] on file Legal Sex Female 12:59 AM EARLY YEARS TEACHER Gender Identity Not on file Sexual Orientation Not on file Occupation Industry Job Start Date Job End Date Retired Not on file Not on file Not on file Obstetrics History Last Filed Vital Signs Vital Sign Reading Time Taken Comments Blood Pressure 137/83 04/11/2024 12:22 PM EARLY YEARS TEACHER Pulse 75 04/11/2024 12:22 PM EARLY YEARS TEACHER Temperature 36.2 C (97.1 F) 01/06/2024 2:01 PM CDT Respiratory Rate 23 09/24/2022 10:00 AM CDT Oxygen Saturation 96% 02/09/2024 9:20 AM CDT Inhaled Oxygen Concentration - - Weight 70.6 kg (155 lb 9.6 oz) 04/11/2024 12:22 PM EARLY YEARS TEACHER Height 157.5 cm (5' 2 ) 04/11/2024 12:22 PM EARLY YEARS TEACHER Body Mass Index 28.46 04/11/2024 12:22 PM EARLY YEARS TEACHER Plan of Treatment Health Maintenance Due Date Last Done Comments Hepatitis C Screening 1945 Osteoporosis Screening-Bone Density Scan 1945 Hepatitis B Screening 1965 Well Visit 65+ 01/06/2012 Fall Risk Assessment 09/25/2023 09/24/2022 Covid-19 Vaccine (5 2023-2 5 season) 2023 03/10/2022, 08/14/2021, 03/29/2021, Additional history exists Depression Screening 05/19/2024 05/19/2023 DTaP/Tdap/Td Vaccine (3 - Td or Tdap) 08/11/2024 08/11/2014, 08/10/2014 Influenza Vaccine (Season Ended) 2024 02/24/2023, 02/03/2021, 01/19/2020, Additional history exists Pneumococcal vaccine 65+ Completed 02/24/2018, 09/13 Zoster Vaccine Completed 04/14/2018, 01/12, 01/29/2018 Breast Cancer Screening-Mammogram Discontinued 09/02/2018, 05/28/2015, 05/15/2014 Medical Devices Implanted Type Area Ambulance Operations Supervisor Device Identifier Shelf Expiration Date Model / Serial / Lot [employer] 1.27mm 40cm 1.5mm 1.5mm Lead Neurostimulator [facility] [id number] - [id number] - [id number] Implanted:Qty: 1 on 09/23/2022 by Favian Richards MD at [facility] Left: Brain [employer] 11/19/2023 [id number] / [id number] / [employer] 4 Hole Straight Mandible Regular Plate Bone Titanium Sterile 2mm - [id number] Implanted:Qty: 2 on 09/23/2022 by Favian Richards MD at [facility] Left: Cranial [employer] / / [employer] Od2 Mm L[address] Maxillofacial Screw Bone Titanium - [id number] Implanted:Qty: 4 on 09/23/2022 by Favian Richards MD at [facility] Left: Cranial [employer] / / Gutiérrez [employer] Infinity 60cm Extension Neurostimulator Deep 6372ans - [id number] - [id number] Implanted:Qty: 1 on 09/23/2022 by Favian Richards MD at [facility] Left: Cranial [employer] 03/18/2024 [id number] / [id number] / G[employer] Infinty 5 Ipg 6660ans - [id number] - [id number] Implanted:Qty: 1 on 09/23/2022 by Favian Richards MD at [facility] Left: Chest [employer] 04/27/2024 [id number] / [id number] / Procedures Procedure Name Priority Date/Time Associated [...] compared to prior imaging studies performed at [facility] on 06/06/2015, 06/24/2016 and 07/21/2017. There [...] compared to prior imaging studies performed at [facility] on 06/06/2015, 06/24/2016 and 07/21/2017. There are scattered areas of fibroglandular density. There is no suspicious abnormality in the right breast. Patient status post contralateral mastectomy for personal history ofbreast cancer. Impression: Annual screening mammography is recommended. OVERALL FINAL ASSESSMENT: BI-RADS CATEGORY 1: Negative. Shannon Medina CITY EDITOR IMG MAMMO PROCEDURES Final Resu lt from Last 3 Months or Most Recently Relevant to Health Maintenance Insurance T MEDICARE * Guarantor: Della Gibbs Account Type Relation to Patient Date of Phone Billing Address Personal/Family [id number]|2024-08-30 08:03:47|2024-08-30 08:03:47|[id number]||||"Anes - Initial Pre Proc Eval Procedure: Operation Date: 08/30/24 09:00 Proposed Procedures p Screening Colonoscopy - Johnny Urbina MD Date/Time: 08/30/24 08:03 Surgeon: Johnny Urbina MD Pre Op Diagnosis: Hx Colon Polyps Patient Data Age: 79 Gender: F Height: 1.55 m Weight: 69.4 kg Last Vital Signs Temp 36.1 C L 08/30/24 07:42 Pulse 102 H 08/30/24 07:42 Resp 20 08/30/24 07:42 BP 126/75 08/30/24 07:42 Pulse Ox 98 08/30/24 07:42 O2 Del Method Room Air 08/30/24 07:42 Allergies Allergy/AdvReac Type Severity Reaction Status Date / Time codeine Allergy Unknown VOMITING Verified 08/30/24 07:41 morphine Allergy Unknown VOMITING Verified 08/30/24 07:41 Home Medications Medication Instructions Recorded Confirmed Type chlorhexidine gluconate 0.12 % 15 ml mucous membrane TID 10/22/21 10/22/21 History mouthwash cholecalciferol (vitamin D3) 50 50 mcg PO DAILY 10/22/21 08/30/24 History mcg (2,000 unit) capsule (Vitamin D3) dapagliflozin propanediol 10 mg 10 mg PO DAILY 10/22/21 08/30/24 History tablet (Farxiga) famciclovir 500 mg tablet 500 mg PO Q12H PRN fever blister 10/22/21 03/25/24 History famotidine 20 mg tablet 20 mg PO BID 10/22/21 08/30/24 History furosemide 20 mg tablet 20 mg PO DIRECTED 10/22/21 08/30/24 History gabapentin 250 mg/5 mL (5 mL) oral 300 mg PO BID 10/22/21 08/30/24 History solution lamotrigine 100 mg tablet 100 mg PO BID 10/22/21 08/30/24 History lidocaine HCl 2 % mucosal solution 1 applic mucous membrane BID PRN 10/22/21 10/22/21 History (Lidocaine Viscous) jaw pain linaclotide 145 mcg capsule 145 mcg PO DIRECTED 10/22/21 08/30/24 History (Linzess) lisinopril 2.5 mg tablet 2.5 mg PO DAILY 10/22/21 08/30/24 History meloxicam 15 mg tablet 15 mg PO DAILY 10/22/21 08/30/24 History metoprolol succinate 25 mg 25 mg PO BID 10/22/21 08/30/24 History tablet,extended release 24 hr multivitamin 1 tablet PO DAILY 10/22/21 08/30/24 History pregabalin 100 mg capsule 100 mg PO HS PRN tremors 10/22/21 03/25/24 History pregabalin 300 mg capsule (Lyrica) 300 mg PO BID 10/22/21 08/30/24 History spironolactone 25 mg tablet 12.5 mg PO DAILY 10/22/21 08/30/24 History teriparatide 20 mcg/dose (560 20 mcg subcut DAILY 10/22/21 10/22/21 History mcg/2.24 mL) subcutaneous pen injector (Forteo) alendronate 70 mg/75 mL oral 70 mg PO WEEKLY 03/25/24 08/30/24 History solution atorvastatin 20 mg tablet 20 mg PO DAILY 08/22/24 08/30/24 History Patient hx anesthesia problems: none Family hx anesthesia problems: none Results Review: All pre-operative results and documents have been reviewed as part of the pre-operative evaluation. [facility] Past Medical History Medical History (Updated 08/29/24 @ 14:49 by Saw Bassett DO) Osteonecrosis jaw GERD (gastroesophageal reflux disease) Congenital heart disease Hyperlipidemia Surgical History Surgical History (Updated 08/29/24 @ 14:49 by Saw Bassett DO) S/P deep brain stimulator placement History of hysterectomy History of mastectomy Family History Family History (Updated 10/22/21 @ 11:30 by Celina Sauceda RN) Other Hypertension Social History Social History Smoking status: Never smoker Living arrangements: with family Spiritual care concerns: No Anes - Eval Final PreProcedure Day of Procedure 08/30/24 08:03 Patient weight: overweight Heart: regular rate and rhythm Lungs: clear to auscultation Airway: Mallampati scale class II Neurological: alert and oriented Last oral intake: >/= 8 hours ASA classification: III Emergent: no Anesthetic plan: proceed Anesthesia type and monitoring: general GIVS and standard monitoring Results Review: All pre-operative results and documents have been reviewed as part of the pre-operative evaluation. Informed Consent: The patient's anesthetic plan and its attendant risks and benefits were discussed with the patient/family/POA. Questions were solicited and answers provided to the satisfaction of the patient/family/POA."
[2024-08-30 07:42] VITALS: BP 126/75; PULSE 102; RESP 20; TEMP 36.1; O2SAT 98; BMI 28.9
[2024-08-30] MEDS: LACTATED RINGERS 1,000 ML 150 ML IV CONT (07:51)
--- NOTE | 2024-08-30 08:03 | P.PNAN_ITS ---
Anes - Initial Pre Proc Eval Procedure: Operation Date: 08/30/24 09:00 Proposed Procedures p Screening Colonoscopy - Johnny Urbina MD Date/Time: 08/30/24 08:03 Surgeon: Johnny Urbina MD Pre Op Diagnosis: Hx Colon Polyps Patient Data Age: 79 Gender: F Height: 1.55 m Weight: 69.4 kg Last Vital Signs Temp 36.1 C L 08/30/24 07:42 Pulse 102 H 08/30/24 07:42 Resp 20 08/30/24 07:42 BP 126/75 08/30/24 07:42 Pulse Ox 98 08/30/24 07:42 O2 Del Method Room Air 08/30/24 07:42 Allergies Allergy/AdvReac Type Severity Reaction Status Date / Time codeine Allergy Unknown VOMITING Verified 08/30/24 07:41 morphine Allergy Unknown VOMITING Verified 08/30/24 07:41 Home Medications Medication Instructions Recorded Confirmed Type chlorhexidine gluconate 0.12 % 15 ml mucous membrane TID 10/22/21 10/22/21 History mouthwash cholecalciferol (vitamin D3) 50 50 mcg PO DAILY 10/22/21 08/30/24 History mcg (2,000 unit) capsule (Vitamin D3) dapagliflozin propanediol 10 mg 10 mg PO DAILY 10/22/21 08/30/24 History tablet (Farxiga) famciclovir 500 mg tablet 500 mg PO Q12H PRN fever blister 10/22/21 03/25/24 History famotidine 20 mg tablet 20 mg PO BID 10/22/21 08/30/24 History furosemide 20 mg tablet 20 mg PO DIRECTED 10/22/21 08/30/24 History gabapentin 250 mg/5 mL (5 mL) oral 300 mg PO BID 10/22/21 08/30/24 History solution lamotrigine 100 mg tablet 100 mg PO BID 10/22/21 08/30/24 History lidocaine HCl 2 % mucosal solution 1 applic mucous membrane BID PRN 10/22/21 10/22/21 History (Lidocaine Viscous) jaw pain linaclotide 145 mcg capsule 145 mcg PO DIRECTED 10/22/21 08/30/24 History (Linzess) lisinopril 2.5 mg tablet 2.5 mg PO DAILY 10/22/21 08/30/24 History meloxicam 15 mg tablet 15 mg PO DAILY 10/22/21 08/30/24 History metoprolol succinate 25 mg 25 mg PO BID 10/22/21 08/30/24 History tablet,extended release 24 hr multivitamin 1 tablet PO DAILY 10/22/21 08/30/24 History pregabalin 100 mg capsule 100 mg PO HS PRN tremors 10/22/21 03/25/24 History pregabalin 300 mg capsule (Lyrica) 300 mg PO BID 10/22/21 08/30/24 History spironolactone 25 mg tablet 12.5 mg PO DAILY 10/22/21 08/30/24 History teriparatide 20 mcg/dose (560 20 mcg subcut DAILY 10/22/21 10/22/21 History mcg/2.24 mL) subcutaneous pen injector (Forteo) alendronate 70 mg/75 mL oral 70 mg PO WEEKLY 03/25/24 08/30/24 History solution atorvastatin 20 mg tablet 20 mg PO DAILY 08/22/24 08/30/24 History Patient hx anesthesia problems: none Family hx anesthesia problems: none Results Review: All pre-operative results and documents have been reviewed as part of the pre- operative evaluation. [facility] Past Medical History Medical History (Updated 08/29/24 @ 14:49 by Saw Bassett DO) Osteonecrosis jaw GERD (gastroesophageal reflux disease) Congenital heart disease Hyperlipidemia Surgical History Surgical History (Updated 08/29/24 @ 14:49 by Saw Bassett DO) S/P deep brain stimulator placement History of hysterectomy History of mastectomy Family History Family History (Updated 10/22/21 @ 11:30 by Celina Sauceda RN) Other Hypertension Social History Social History Smoking status: Never smoker Living arrangements: with family Spiritual care concerns: No Anes - Eval Final PreProcedure Day of Procedure 08/30/24 08:03 Patient weight: overweight Heart: regular rate and rhythm Lungs: clear to auscultation Airway: Mallampati scale class II Neurological: alert and oriented Last oral intake: >/= 8 hours ASA classification: III Emergent: no Anesthetic plan: proceed Anesthesia type and monitoring: general GIVS and standard monitoring Results Review: All pre-operative results and documents have been reviewed as part of the pre-operative evaluation. Informed Consent: The patient's anesthetic plan and its attendant risks and benefits were discussed with the patient/family/POA. Questions were solicited and answers provided to the satisfaction of the patient/family/POA.
--- NOTE | 2024-08-30 08:50 | PM.IMHP ---
H&P: HPI History of Present Illness Date/Time: 08/30/24 08:50 Chief Complaint: Screening colonoscopy Narrative: This is the patient's 3rd colonoscopy, the last 1 was more than 10 years ago.. There are no GI symptoms and there is no family history of colorectal cancer. Review of Systems Review of Systems: All systems reviewed & are unremarkable except as noted in HPI and below PMFSH Past Medical History Medical History (Updated 08/30/24 @ 08:51 by Johnny Urbina MD) Osteonecrosis jaw GERD (gastroesophageal reflux disease) Congenital heart disease Hyperlipidemia Surgical History Surgical History (Updated 08/29/24 @ 14:49 by Saw Bassett DO) S/P deep brain stimulator placement History of hysterectomy History of mastectomy Family History Family History (Updated 10/22/21 @ 11:30 by Celina Sauceda RN) Other Hypertension Social History Social History Smoking status: Never smoker Living arrangements: with family Spiritual care concerns: No Meds Home Medications and Allergies Home Medications Medication Instructions Recorded Confirmed Type chlorhexidine gluconate 0.12 % 15 ml mucous membrane TID 10/22/21 10/22/21 History mouthwash cholecalciferol (vitamin D3) 50 50 mcg PO DAILY 10/22/21 08/30/24 History mcg (2,000 unit) capsule (Vitamin D3) dapagliflozin propanediol 10 mg 10 mg PO DAILY 10/22/21 08/30/24 History tablet (Farxiga) famciclovir 500 mg tablet 500 mg PO Q12H PRN fever blister 10/22/21 03/25/24 History famotidine 20 mg tablet 20 mg PO BID 10/22/21 08/30/24 History furosemide 20 mg tablet 20 mg PO DIRECTED 10/22/21 08/30/24 History gabapentin 250 mg/5 mL (5 mL) oral 300 mg PO BID 10/22/21 08/30/24 History solution lamotrigine 100 mg tablet 100 mg PO BID 10/22/21 08/30/24 History lidocaine HCl 2 % mucosal solution 1 applic mucous membrane BID PRN 10/22/21 10/22/21 History (Lidocaine Viscous) jaw pain linaclotide 145 mcg capsule 145 mcg PO DIRECTED 10/22/21 08/30/24 History (Linzess) lisinopril 2.5 mg tablet 2.5 mg PO DAILY 10/22/21 08/30/24 History meloxicam 15 mg tablet 15 mg PO DAILY 10/22/21 08/30/24 History metoprolol succinate 25 mg 25 mg PO BID 10/22/21 08/30/24 History tablet,extended release 24 hr multivitamin 1 tablet PO DAILY 10/22/21 08/30/24 History pregabalin 100 mg capsule 100 mg PO HS PRN tremors 10/22/21 03/25/24 History pregabalin 300 mg capsule (Lyrica) 300 mg PO BID 10/22/21 08/30/24 History spironolactone 25 mg tablet 12.5 mg PO DAILY 10/22/21 08/30/24 History teriparatide 20 mcg/dose (560 20 mcg subcut DAILY 10/22/21 10/22/21 History mcg/2.24 mL) subcutaneous pen injector (Forteo) alendronate 70 mg/75 mL oral 70 mg PO WEEKLY 03/25/24 08/30/24 History solution atorvastatin 20 mg tablet 20 mg PO DAILY 08/22/24 08/30/24 History Allergies Allergy/AdvReac Type Severity Reaction Status Date / Time codeine Allergy Unknown VOMITING Verified 08/30/24 07:41 morphine Allergy Unknown VOMITING Verified 08/30/24 07:41 Vital Signs Vital Signs - 24 hr 08/30/24 07:42 Temperature 97 F L Pulse Rate 102 H Respiratory Rate 20 Blood Pressure 126/75 Pulse Oximetry 98 Oxygen Delivery Room Air Exam Const: General: cooperative and healthy appearing Resp: Effort & Inspection: normal respiratory effort and able to speak in complete sentences Auscultation: clear to auscultation bilaterally Cardio: Rate: regular rate Rhythm: regular rhythm GI: Inspection: normal to inspection GI Palp: No No hepatosplenomegaly present Auscultation: normal bowel sounds Rectal Exam: deferred Skin: General skin exam: normal color Psych: Appearance: grossly normal Mental Status: mental status grossly normal Assessment and Plan Assessment and plan (1) Encounter for screening colonoscopy: Code(s): Z12.11 - Encounter for screening for malignant neoplasm of colon Status: Acute Assessment and Plan: The patient is deemed a good candidate for the procedure. Consent signed. Will proceed.
[2024-08-30 09:13] VITALS: BP 89/56; PULSE 73; RESP 17; O2SAT 94
[2024-08-30 09:23] VITALS: BP 101/62; PULSE 75; RESP 21; O2SAT 99
[2024-08-30 09:33] VITALS: BP 106/67; PULSE 70; RESP 17; O2SAT 100
== END 2024-08-30 09:42 | disposition home or self-care (01) ==
PROVIDERS: PCP Internal Medicine; Referring Provider Nurse Practitioner; Visit Provider Internal Medicine Gastroenterology
PROC: 0DJD8ZZ Inspection of Lower Intestinal Tract, Via Natural or Artificial Opening Endoscopic (ICD-10-PCS; CPT 45378; principal; 2024-08-30 09:00)
DX: Z12.11 Encounter for screening for malignant neoplasm of colon (principal); K57.30 Diverticulosis of large intestine without perforation or abscess without bleeding; K64.8 Other hemorrhoids
CPT/HCPCS: G0121; J2003; J2704; J7120